=== PATIENT | female | born 1985 | race African-American/Black ===

== ENCOUNTER 2021-10-31 12:27 | Outpatient (CLI) | payer OTHER, SELFPAY ==
--- NOTE | ~2021-10-31 | XR_ITS ---
EXAMINATION: XR chest 2V Exam Date/Time: 10/31/2021 12:52 CDT HISTORY: SHARP LEFT SIDE CHEST PAIN Comparison: None available. RESULT: Lines, tubes, and devices: None. Lungs and pleura: Clear. Cardiomediastinal silhouette: Normal. Other: No acute osseous or upper abdominal finding. IMPRESSION: No acute cardiopulmonary process. Reviewed, dictated and finalized at location K.
--- NOTE | 2021-10-31 13:04 | ECG_ITS ---
Measurements Intervals [place] Rate: 58 P: 63 [place]: 164 QRS: 50 QRSD: 79 T: 28 QT: 424 QTc: 418 Interpretive Statements SINUS BRADYCARDIA WITH SINUS ARRHYTHMIA BORDERLINE ECG NO PREVIOUS ECG AVAILABLE FOR COMPARISON Electronically Signed On 10-31-2021 16:37:57 CDT by Ant Murray M.D.
== END 2021-10-31 12:28 | disposition home or self-care (01) ==
LOC: ANHIMG 12:35
PROVIDERS: PCP Physician Assistant; Visit Provider Physician Assistant
DX: R07.9 Chest pain, unspecified (principal); R94.31 Abnormal electrocardiogram [ECG] [EKG]
CPT/HCPCS: 71046; 93005

== ENCOUNTER 2022-08-30 14:38 | Outpatient (CLI) | payer OTHER, SELFPAY ==
--- NOTE | ~2022-08-30 | XR_ITS ---
EXAM: XR lumbar spine 2-3V DATE: 08/30/2022 15:07 HISTORY: CHRONIC LOW BACK PAIN . COMPARISON: X-ray chest 10/31/2021. FINDINGS: 5 nonrib-bearing lumbar-type vertebral bodies. Unfused S1 posterior arch. Transitional bridget paty, partial lumbarization of S1, rudimentary disc at S1-2. Pedicles intact. Normal vertebral body a lignment. Vertebral body heights preserved. Disc spaces maintained. Normal facets and posterior eleme nts. No fracture or dislocation. IMPRESSION: Transitional anatomy, partial lumbarization of S1, with a rudimentary disc at S1-2. Other huynh normal lumbar spine radiograph findings. Reviewed, dictated and finalized at location K. IMPRESSION: Transitional anatomy, partial lumbarization of S1, with a rudimenta ry disc at S1-2. Otherwise normal lumbar spine radiograph findings.
--- NOTE | ~2022-08-30 | XR_ITS ---
EXAM: XR knee RT min 4V, XR knee LT min 4V DATE: 08/30/2022 15:07 HISTORY: CHRONIC JOINT PAIN . COMPARISON: None available. FINDINGS: Normal mineralization. No fracture or dislocation. No lytic or blastic lesion. Mild bilate ral medial joint space narrowing. Mild tricompartmental osteophytosis. No erosion or periosteal levy e. Soft tissues within normal limits. IMPRESSION: Mild bilateral tricompartmental knee osteoarthritis. Reviewed, dictated and finalized at location K. IMPRESSION: Mild bilateral tricompartmental knee osteoarthritis.
== END 2022-08-30 14:39 | disposition home or self-care (01) ==
PROVIDERS: PCP Physician Assistant; Visit Provider Physician Assistant
DX: M17.0 Bilateral primary osteoarthritis of knee (principal); M54.50 Low back pain, unspecified
CPT/HCPCS: 72100; 73564

== ENCOUNTER 2022-09-25 13:30 | Outpatient (RCR) | payer OTHER, SELFPAY ==
--- NOTE | 2022-08-31 14:21 | OPREHPOC ---
Outpatient Therapy Plan of Care This is a Multidisciplinary Plan of Care that may contain components documented by all disciplines (PT, OT, and ST.) PT Problem 1 PT Problem #1 Knowledge Deficit PT Goal 1 Goal 1. patient will demonstrate independence with home exercise program PT Problem 2 PT Problem #2 Pain PT Goal 1 Goal 1. Patient will report back pain as 3/10 with activity 2. Patient will report bilateral knee pain as 3/10 with exercise 3. Patient will report reduction in bilateral leg radicular symptoms PT Problem 3 PT Problem #3 Impaired Functional Mobil PT Goal 1 Goal 1. Patient will report ability to return to exercising due reduction in symptoms PT Problem 4 PT Problem #4 Impaired Strength PT Goal 1 Goal 1. Patient will perform 20 bilateral prone hip extension 2. Patient will perform 20 reps sidelying hip abduction without reports of pain 3. Patient will demonstrate ability to perform squat with good technique due to reduction in pain and improvement in strength
--- NOTE | 2022-08-31 14:22 | PTOPEVAL1 ---
Assessment and note entered by Raquel Farrell, PT Evaluation Information Assessment Status Evaluation Diagnosis back and knee pain Onset back pain- onset Subjective Information Patient referred to PT due to back which has been present since 6 years ago. Pain can get up to 8/10 in mid and low back with radicular pain into bilateral legs Patient also reports knee pain for the past 3 to 4 years, reports knees feel like they are going to give out. Patient attempts to exercise however pain limits activity tolerance. Patient states pain is currently 8/10. 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 Patients goal is to reduce pain in back and knee pain in order to tolerate working and exercising. Reported Pain Level Pain Score 8,8: Self Report Assessment PT Clinical Summary Patient is 37 year old female presents with back and bilateral knee pain. All locations are currently rated as 8/10 and aggravated by standing /lifting/prolonged positioning. Patient demonstrates impairments in core/lower extremity strength, muscle length causing pain in back and knees with reports of radicular pain into bilateral lower extremities. Recommending skilled PT services 2x/wk for 4 weeks to improve strength, improve posture, improve muscle length in order to reduce back and knee pain and return to daily activities within community. Plan of Care Interventions Electrical Stimulation,Gait Training,Hot Pack/Cold Pack,Manual Therapy,Neuro Re-education,Patient/ Caregiver Education,Therapeutic Activities, Therapeutic Exercise,Ultrasound Other Interventions cupping, taping, iastm PT Services Indicated Yes Treatment Frequency and 2x/wk for 4 weeks Duration These treatments will address the objective and functional deficits as defined above. The patient will be advanced safely and appropriately in order for the patient to progress towards his/her prior level of function. Additional exercises will be introduced and as well as a comprehensive home exercise program upon discharge, if needed, ?to ensure carryover of functional gains achieved in the clinic. This treatment plan has been reviewed and agreement upon by the patient.
--- NOTE | 2022-09-13 13:19 | PCPTNOTE ---
Patient did not show up for scheduled appointment this date.
--- NOTE | 2022-09-15 15:01 | PCPTNOTE ---
Pt NS her appt today. Called pt and reminded them of her next appt day and time. Pt stated she forgot todays appt.
== END 2022-11-27 10:25 | disposition home or self-care (01) ==
LOC: ANHPT 13:30
PROVIDERS: PCP Physician Assistant; Visit Provider Physician Assistant
DX: G89.29 Other chronic pain (principal)
CPT/HCPCS: 97110; 97162; 97530; 99199

== ENCOUNTER 2023-05-01 17:00 | Emergency (ER) | payer OTHER, SELFPAY ==
[2023-05-01] VITALS (14 sets, daily range): BP systolic 148–156; BP diastolic 80–98; PULSE 57–72; RESP 13–19; TEMP 36.8–37.1; O2SAT 99–100
--- NOTE | ~2023-05-01 | XR_ITS ---
EXAMINATION: XR chest 2V DATE: 05/01/2023 17:25 INDICATION: Chest pain. TECHNIQUE: Frontal and lateral views of the chest were obtained. COMPARISON: Chest 2 views 10/31/2021 FINDINGS: There is no pneumonia, pleural effusion, or pneumothorax. The heart size is normal. IMPRESSION: 1. No acute cardiopulmonary disease. Reviewed, dictated and finalized at location E. NG FORMER HAND
--- NOTE | 2023-05-01 17:05 | ECG_ITS ---
Measurements Intervals [place] Rate: 65 P: 58 [place]: 162 QRS: 40 QRSD: 82 T: 32 QT: 400 QTc: 417 Interpretive Statements SINUS RHYTHM COMPARED TO ECG 10/31/2021 13:18:33 SINUS RHYTHM NOW PRESENT Electronically Signed On 05-02-2023 15:57:04 COLLEGE PHYSICS INSTRUCTOR by Lucas Maher M.D.
--- NOTE | 2023-05-01 17:09 | ED.CHESTPAIN ---
HPI - Chest Pain General Chief Complaint: Chest Pain <Amalia Palma PA-C - Last Filed: 05/02/23 13:24> Stated Complaint: chest pain <Amalia Palma PA-C - Last Filed: 05/02/23 13:24> Time Seen by Provider: 05/01/23 17:09 <Amalia Palma PA-C - Last Filed: 05/02/23 13:24> Focused HPI: This is a 38 year old female that presents to the ER for chest pain. Reports it has been ongoing for a while on and off. Reports over the last 2 days it has become more constant. The pain is sharp and achy. No known alleviating or exacerbating factors. Denies shortness of breath, vomiting or dizziness. GENERAL: Well-appearing, well-nourished, and in no acute distress. HEAD: Normocephalic, atraumatic. CHEST: Clear to auscultation. ?No respiratory distress. HEART: Regular rate and rhythm.? NEURO: ?Alert and oriented x3. Patient screened in triage and initial orders placed.? ?Additional care and disposition to be based upon?diagnostic testing and treatment. <Amalia Palma PA-C - Last Filed: 05/02/23 13:24> History of Present Illness HPI narrative: 38-year-old female presenting to the emergency department for evaluation of intermittent left-sided chest pain. Patient states she did have recent exposure to influenza and did develop some cough with it. <Chele Chowdhury MD - Last Filed: 05/05/23 10:03> Related Data Allergies/Adverse Reactions: Allergies Allergy/AdvReac Type Severity Reaction Status Date / Time No Known Allergies Allergy Verified 05/01/23 23:14 <Amalia Palma PA-C - Last Filed: 05/02/23 13:24> Review of Systems Review of Systems: CONSTITUTIONAL: Denies fever CARDIOVASCULAR: Reports chest pain RESPIRATORY: Denies dyspnea. <Amalia Palma PA-C - Last Filed: 05/02/23 13:24> All systems reviewed & are unremarkable except as noted in HPI and below <Amalia Palma PA-C - Last Filed: 05/02/23 13:24> PMFSH Past Medical History Medical History: Medical History (Updated 05/03/23 @ 00:00 by Lorraine Mccannalexia) History of gastroesophageal reflux (GERD) History of hypertension <Amalia Palma PA-C - Last Filed: 05/02/23 13:24> Social History Social History: Social History (Updated 05/01/23 @ 17:11 by Amalia Palma PA-C) Substance use: current Substance use type: marijuana <Amalia Palma PA-C - Last Filed: 05/02/23 13:24> Exam Narrative: GENERAL: Well-appearing, well-nourished, and in no acute distress. HEAD: Normocephalic, atraumatic. EYES: EOMI. CHEST: Clear to auscultation. No respiratory distress. No wheezes rales or rhonchi HEART: Regular rate and rhythm. No murmur heard. Normal peripheral pulses. EXTREMITIES: Normal range of motion. No edema. SKIN: Warm, dry, no rash. NEURO: No focal deficits. Alert and oriented x3. PSYCH: Normal mood and affect <Amalia Palma PA-C - Last Filed: 05/02/23 13:24> Course Course Emergency Course: 38-year-old female presenting to the ED for evaluation bilateral chest pain that is worsened with inspiration worsened with coughing. Patient is afebrile with no leukocytosis and a stable hemoglobin of 12.7. Patient's D-dimer with high end of normal but still within normal limits. Patient's CMP had no acute abnormalities and patient had negative serial troponins. Chest x-ray showed no acute cardiopulmonary abnormality. Patient had resolution of her symptoms with IV Toradol. With the recent viral infection I do suspect pleurisy rather than pulmonary embolism versus cardiac angina. Patient was updated on the results of workup patient was comfortable with plan for discharge and close follow-up <Chele Chowdhury MD - Last Filed: 05/05/23 10:03> Vital Signs Vital signs: Vital Signs Temperature 98.8 F 05/01/23 17:09 Pulse Rate 72 05/01/23 17:09 Respiratory Rate 16 05/01/23 17:09 Blood Pressure 153/80 H 05/01/23 17:09 Pulse Oximetry 100 05/01/23 17:09 Oxygen Delivery Room Air
[2023-05-01 17:52] LABS: Alanine Aminotransferase 17 U/L (6-35); Alkaline Phosphatase 55 U/L (38-126); Anion Gap 6 mmol/L (8-16); Aspartate Amino Transferase 22 U/L (14-36); Bilirubin,Total 0.4 mg/dL (0.2-1.3); Blood Urea Nitrogen 10 mg/dL (7-17); Calcium 8.9 mg/dL (8.4-10.2); Carbon Dioxide 25 mmol/L (22-30); Chloride 106 mmol/L (98-107); Estimated CRCL calculation 79 ml/min; Estimated Glomerular Filt Rate > 60; Glucose 101 mg/dL (65-110); Lipase 73 U/L (23-300); Potassium 3.9 mmol/L (3.4-5.0); Sodium 137 mmol/L (137-145)
[2023-05-01 18:02] LABS: Troponin I < 0.012 ng/mL (0.000-0.034)
--- NOTE | 2023-05-01 20:19 | ECG_ITS ---
Measurements Intervals [place] Rate: 60 P: 60 [place]: 167 QRS: 46 QRSD: 81 T: 32 QT: 403 QTc: 405 Interpretive Statements SINUS RHYTHM NORMAL ECG COMPARED TO ECG 05/01/2023 17:11:28 NO SIGNIFICANT CHANGES Electronically Signed On 05-02-2023 16:18:46 BOMB TECHNICIAN by Ant Murray M.D.
[2023-05-01 20:34] LABS: Basophils Percent Auto 0.5 % (0.2-1.2); Eosinophils Absolute Auto 0.3 K/mm3 (0-0.3); Eosinophils Percent Auto 3.8 % (0-4.4); Hematocrit 40.3 % (37.0-47.0); Hemoglobin 12.7 g/dL (12.0-15.0); Immature Granulocyte Absolute 0.02 K/mm3 (0.00-0.031); Immature Granulocyte Percent A 0.3 % (0-0.5); Lymphocytes Absolute Auto 3.61 K/mm3 (0.9-3.2); Lymphocytes Percent Auto 49.4 % (18.3-44.2); Mean Corpuscular HGB Conc 31.5 g/dl (32-36); Mean Corpuscular Hemoglobin 30.4 pg (26-34); Mean Corpuscular Volume 96.4 fl (80-100); Mean Platelet Volume 10.1 fl (7.4-10.4); Monocytes Absolute Auto 0.5 K/mm3 (0.1-0.6); Monocytes Percent Auto 6.8 % (2.6-8.5); Neutrophils Absolute Auto 2.9 K/mm3 (1.3-6.7); Neutrophils Percent Auto 39.2 % (45.5-73.1); Platelet Count Result 269 k/mm3 (150-375); Red Blood Count 4.18 M/mm3 (4.2-5.4); Red Cell Distribution Width 14.5 % (11.5-14.5); White Blood Count 7.3 K/mm3 (4.5-10.0)
[2023-05-01 20:58] LABS: Troponin I 0.015 ng/mL (0.000-0.034)
[2023-05-01 22:51] LABS: Partial Thromboplastin Time 27.1 SECONDS (22.3-36.8)
[2023-05-01 22:52] LABS: Prothrombin Time 13.2 Seconds (11.1-14.7)
[2023-05-01 23:01] LABS: D Dimer 0.47 ug/mL (<0.48)
--- NOTE | 2023-05-01 23:48 | ECG_ITS ---
Measurements Intervals [place] Rate: 57 P: 49 [place]: 170 QRS: 38 QRSD: 84 T: 19 QT: 422 QTc: 411 Interpretive Statements SINUS BRADYCARDIA WITH SINUS ARRHYTHMIA NORMAL ECG COMPARED TO ECG 05/01/2023 20:31:31 SINUS BRADYCARDIA NOW PRESENT SINUS ARRHYTHMIA NOW PRESENT Electronically Signed On 05-02-2023 16:21:26 OFFICE MANAGER by Ant Murray M.D.
[2023-05-02 00:06] LABS: Troponin I < 0.012 ng/mL (0.000-0.034)
--- NOTE | 2023-05-02 00:10 | ED.CHESTPAIN ---
HPI - Chest Pain General Chief Complaint: Chest Pain Stated Complaint: chest pain Time Seen by Provider: 05/01/23 17:09 History of Present Illness HPI narrative: 38-year-old female present to the emergency department for evaluation of intermittent chest pain. Patient states the chest pain is bilateral and worsened with cough and inspiration. Patient states that was less frequently few days ago but more frequent today. Patient states that she does have cough and congestion secondary to suspected influenza. Patient reports her daughter had influenza and she developed subsequent cough and congestion. Patient denies any prior history of coronary artery disease or MS. Patient denies any prior history PE or DVT. Related Data Allergies Allergy/AdvReac Type Severity Reaction Status Date / Time No Known Allergies Allergy Verified 05/01/23 23:14 Review of Systems Review of Systems: All systems reviewed & are unremarkable except as noted in HPI and below PMFSH Past Medical History Medical History (Updated 05/03/23 @ 00:00 by Lorraine Strong) History of gastroesophageal reflux (GERD) History of hypertension Social History Social History (Updated 05/01/23 @ 17:11 by Amalia Palma PA-C) Substance use: current Substance use type: marijuana Exam Narrative: APPEARANCE: Well appearing, no pain, no distress, well-nourished. HEAD: normocephalic, atraumatic. EYES: PERRLA/EOMI, conjunctivae clear. NOSE: Normal no drainage EARS:TMS clear with good light reflex. THROAT: Pharynx clear, no exudate. NECK: Supple. No adenopathy, no masses. RESPIRATORY: Airway patent, respirations nonlabored. Clear to auscultation bilaterally, no rales, rhonchi, wheezing. CARDIOVASCULAR: Regular rate and rhythm without murmurs rubs or gallops. ABDOMINAL: Soft, nontender, nondistended, normal bowel sounds MUSCULOSKELETAL: Moves all extremities. Strength/ROM intact, No edema, No calf tenderness. NEURO: Alert. Cranial nerves II through XII intact. Grossly intact SKIN: Warm, dry. Normal Color Course Vital Signs Vital signs: Vital Signs Temperature 98.8 F 05/01/23 17:09 Pulse Rate 72 05/01/23 17:09 Respiratory Rate 16 05/01/23 17:09 Blood Pressure 153/80 H 05/01/23 17:09 Pulse Oximetry 100 05/01/23 17:09 Oxygen Delivery Room Air 05/01/23 17:09 Temperature 98.3 F 05/01/23 20:33 Pulse Rate 69 05/02/23 02:45 Respiratory Rate 17 05/02/23 02:45 Blood Pressure 156/98 H 05/01/23 23:31 Pulse Oximetry 100 05/01/23 23:47 Oxygen Delivery Room Air 05/01/23 23:08 MDM - Chest Pain Lab Data 05/01/23 20:28 05/01/23 17:22 Labs: Lab Results 05/01/23 05/01/23 05/01/23 Range/Units 17:22 20:28 22:34 WBC 7.3 (4.5-10.0) K/mm3 RBC 4.18 L (4.2-5.4) M/mm3 Hgb 12.7 (12.0-15.0) g/dL Hct 40.3 (37.0-47.0) % MCV 96.4 (80-100) fl MCH 30.4 (26-34) pg MCHC 31.5 L (32-36) g/dl RDW 14.5 (11.5-14.5) % Plt Count 269 (150-375) k/mm3 MPV 10.1 (7.4-10.4) fl Immature Gran % (Auto) 0.3 (0-0.5) % Neut % (Auto) 39.2 L (45.5-73.1) % Lymph % (Auto) 49.4 H (18.3-44.2) % [place] % (Auto) 6.8 (2.6-8.5) % Eos % (Auto) 3.8 (0-4.4) % Baso % (Auto) 0.5 (0.2-1.2) % Lymph # (Auto) 3.61 H (0.9-3.2) K/mm3 [place] # (Auto) 0.5 (0.1-0.6) K/mm3 Eos # (Auto) 0.3 (0-0.3) K/mm3 Baso # (Auto) 0.0 (0.0-0.1) K/mm3 Abs Immat Gran (auto) 0.02 (0.00-0.031) K/mm3 Absolute Neuts (auto) 2.9 (1.3-6.7) K/mm3 Absolute Nucleated RBC 0.0 (0.0-0.012) K/mm3 Nucleated RBC % 0.0 (0.0-0.2) % PT 13.2 (11.1-14.7) Seconds INR 1.0 APTT 27.1 (22.3-36.8) SECONDS D-Dimer 0.47 (<0.48) ug/mL Sodium 137 (137-145) mmol/L Potassium 3.9 (3.4-5.0) mmol/L Chloride 106 (98-107) mmol/L Carbon Dioxide 25 (22-30) mmol/L Anion Gap 6 L (8-16) mmol/L BUN 10 (7-17) mg/dL Creatinin
[2023-05-02] MEDS: KETOROLAC 30 MG/ML VIAL (*BKC) IM (00:51)
[2023-05-02 02:00] VITALS: PULSE 73; RESP 16
[2023-05-02 02:15] VITALS: PULSE 65; RESP 14
[2023-05-02 02:41] VITALS: PULSE 61; RESP 13
[2023-05-02 02:45] VITALS: PULSE 69; RESP 17
== END 2023-05-02 03:05 | disposition home or self-care (01) ==
PROVIDERS: Family Medicine; Physician Assistant; Emergency Provider Emergency Medicine; PCP Physician Assistant
DX: R09.1 Pleurisy (principal); R07.9 Chest pain, unspecified; I10 Essential (primary) hypertension
CPT/HCPCS: 36415; 71046; 80053; 83690; 84484; 85025; 85380; 85610; 85730; 93005; 96372; 99284; J1885

== ENCOUNTER 2025-03-02 18:30 | Emergency (ER) | payer OTHER, SELFPAY ==
--- OUTSIDE RECORDS SUMMARY | 2025-03-02 18:33 | XMS_ITS | Continuity of Care Document ---
Author Organization [facility] Jadwin Address [address] [place] [address] Assessment Encounter Date Assessment Date Assessment LastModified by Organization Details LastModified Time 02/16/2025 02/16/2025 Annual gynecological exam performed. Patient will come back in a year unless there are new symptoms. [email or web address] Not available 02/16/2025 15:25:43 Plan of Treatment Reminders Order Date Submit Date Provider Last Modified By Organization Details Last Modified Time Details Appointments MED CHECK 2025 10:00A YOSELIN Harrgove Not available Not available Not available Lab hbcab (hepatiti s B core Ab) igm, serum 2024 025 [facility] (Lab), [address] [facility], [place], [address], 02/17/2025 19:24:35 HBsAg (hepatiti s B surface Ag), serum 2024 025 [facility] (Lab), [address] [place], [address], 02/17/2025 19:24:34 hepatitis C virus Ab, serum 2024 025 [facility] (Lab), [address], [place], [address], 02/17/2025 19:24:34 HIV 1+2 AB + HIV 1 p24 Ag, qualitati ve immunoass ay, serum 2024 025 [facility] (Lab), [address], [place], [address], 02/17/2025 19:24:33 RPR (rapid plasma reagin), serum 2024 025 [facility] (Lab), [address] [facility], [place], [address], 02/17/2025 19:24:34 Referral None recorded. Procedures None recorded. Surgeries None recorded. Imaging None recorded. Medication Orders Slynd 4 mg (28) tablet 2024 025 [id number], [address], [place], [place], [id number], 02/16/2025 16:09:03 Patient TargetsNo targets recorded. Patient InstructionsNo instructions recorded. Reason for Referral None Reported. Results Created Date Observation Date Name Description Value Unit Range Abnormal Flag Note LastModifiedBy Organization Detail LastModifiedTime 02/17/2002/16/2025 HIV 1/2 ANTIG EN/AN TIBOD Y, REFLE X CONFI RMATI ON HIV antigen/anti body Nonrea ctive nonrea ctive HIV-1 antig en and HIV-1 /HIV- 2 antib odies were not detec pratima. No labor atory evide nce of HIV infec tion. Not Available [facility] (Lab) [address], [place], [address], 02/17/2025 19:24:33 02/17/2002/16/2025 HEPAT ITIS B SURFA CE ANTIG EN hepatitis B surface antigen Non-re active non-re active The test metho d is elect dane milum inesc ence immun oassa y perfo rmed on the Dane Shannan e801. Value s obtai brett with diffe rent assay metho ds by other labor atori es canno t be used inter levy eably . Not Available [facility] (Lab) [address], [place], [address], 02/17/2025 19:24:34 02/17/20 25 02/16/2025 HEPAT ITIS C ANTIB ERIKA SCREE N, REFLE X TO CONFI RMATI ON hepatitis C antibody Non-re active non-re active Antib odies to HCV Not Detec pratima, does not exclu de the possi bilit y of expos ure to HCV. The test metho d is elect dane milum inesc ence immun oassa y perfo rmed on the Dane Shannan e801. Value s obtai brett with diffe rent assay metho ds by other labor atori es canno t be used inter levy eably . Not Available [facility] (Lab) [address] [facility], [place], [address], 02/17/2025 19:24:34 02/17/20 25 02/16/2025 RPR SCREE N, REFLE X TITER /CONF IRMAT ION RPR qualitative Nonrea ctive nonrea ctive Not Available [facility] (Lab) [address] [facility], [place], [address], 02/17/2025 19:24:34 02/17/20 25 02/16/2025 HEPAT ITIS B CORE, IGM hepatitis B core IgM antibody Non-re active non-re active Antib odies to Hepat itis B Core IgM not detec pratima. Does not exclu de the possi bilit y of expos ure to or infec tion with HBV. Corre late with other Hepat itis B serol ogies . Not Available [facility] (Lab) [address] [facility], [place], [address], 02/17/2025 19:24:35 02/17/20 25 02/16/2025 IMAGE GUIDE D PAP AND HPV REGAR DLESS image guided Pap, HPV regardless of Pap result SEE RESULT S BELOW CASE REPOR T: Cytol ogy Gynec ologi gunjan Repor t Case: [id number] Autho ribrooken g Provi darell: Corinne Duran, LANE Colle cted: 02/16 1623 Order ing Locat ion: [place] [facility] Recei suly: 02/17 0930 First Scree n: Dilcia mendoza, Angélica bella, CT Speci men: Carmen celestin Pap - Image d, Cervi x STATE MENT OF ADEQU ACY: Satis facto ry for evalu ation Trans forma tion zone compo nent absen t ----- ----- ----- ----- ----- ----- ----- ----- ----- ----- ----- ----- ----- ----- ----- ----- ----- ---- FINAL DIAGN OSIS: Negat lisbet for Intra epith elial Sherie mcbride or Tish martell ([facility]) . Shift in bailey sugge stive of bacte rial vagin osis. Elect marielena durbin by Angélica Knight ed, CT on 02/19 at 2309 SUPERVISING CHEF ----- ----- ----- ----- ----- ----- ----- ----- ----- ----- ----- ----- ----- ----- ----- ----- ----- ---- HPV RESUL TS: HPV mRNA E6/E7 : No HPV mRNA Detec pratima NOTE: This high risk HPV mRNA assay detec ts fourt een high- risk HPV types (16, 18, 31, 33, 35, 39, 45, 51, 52, 56, 58, 59, 66, 68) witho ut diffe renti ation . COMME NT: Slide scree brett manua lly due to rejec tion by the Thinp rep Imagi ng Syste m. CLINI GUNJAN INFOR MATIO N: Menst rual Statu s: LMP (if appli cable ): Clini gunjan Histo ry/Pr eviou s Pap: Type of Neopl josie (if appli cable ): Signi ficisabela t Clini gunjan Findi ngs: Other Histo ry: Hormo te (if appli cable ): PAP EDUCA FITO L NOTE: The Pap Test is a scree fawad test with an inher ent false negat lisbet rate. Liqui d-bas ed sampl ing may decre ase, but will not elimi madelin, false negat lisbet resul ts. A negat lisbet resul t does not precl ude the prese nce and/o r devel opmen t of disea se, since the prese nce of abnor mal cells in the sampl e depen ds on the locat ion of the lesio n and sampl ing techn ique. Charlie nued regul ar scree fawad is the best metho d of cance r preve ntion . If repor pratima cytol ogic findi ng do not corre late with physi gunjan and/o r histo rical findi ngs, furth er inves tigat ion is recom ethan d, as clini praveen monae nted. Not Available [facility] (Lab) [address] [facility], [place], [address], 02/20/2025 00:13:38 Result Notes None recorded. Procedures Surgical History Date Name Laterality Status Provider Name and Address Organization Details Recorded Time 6 section completed [facility] 02/16/2025 15:46:52 Imaging Results None recorded. Procedure Notes None recorded. Medical Equipment None Reported. Allergies Allergen ID Allergen Name Allergen Category Reaction Reaction Severity Criticality Documentation Date Start Date Code Code System Note Provider Name and Address Organization Details Recorded Time 29135 penicilli n V Not available Not available Not available Not available 02/16/20252018 7984 RxNorm unrec ogniz ed react ion (text : Unkno wn, code: 51927 5006) (from [facility] sour e) Not Available [employer] - External Data Service - prod 5 03:04:59 39233 penicilli n G Not available Not available Not available Not available 02/16/20252018 7980 RxNorm unrec ogniz ed react ion (text : Unkno wn, code: 27090 5006) [facility]) Not Available [employer] Data Service - prod 03:04:59 16996 Product containin g penicilli n (product) medicatio n Not available Not available Not available 02/16/2025 27177 8001 SNOMED Not Available [employer] - External Data Service - prod 03:05:23 Medications Name Sig Start Date Stop Date Status Note LastModified by Organization Details LastModified Time cetirizine 10 mg tablet TAKE 1 TABLET BY MOUTH EVERY DAY active Not Available Not Available No t Available omeprazole 40 mg capsule,del ayed release TAKE 1 CAPSULE (40 MG TOTAL) BY MOUTH DAILY. active Not Available Not Available No t Available amlodipine 10 mg tablet TAKE 1 TABLET BY MOUTH EVERY DAY active Not Available Not Available No t Available albuterol sulfate HFA 90 mcg/actuati on aerosol inhaler INHALE 2 PUFFS BY MOUTH EVERY 4 HOURS NEEDED active Not Available Not Available No t Available albuterol 02/16 completed Not Available Not Available Not Available Symbicort 80 mcg-4.5 mcg/actuati on HFA aerosol inhaler INHALE 2 PUFFS TWICE A DAY active Not Available Not Available No t Available cholecalcif everton (vitamin D3) 125 mcg (5,000 unit) tablet TAKE 1 TABLET BY MOUTH EVERY DAY active Not Available Not Available No t Available Slynd 4 mg (28) tablet Take 1 tablet every day by oral route. 2024 active Not Available Not Available Not Avai lable EluRyng 0.12 mg-0.015 mg/24 hr vaginal ring INSERT 1 RING VAGINALLY X3 WEEKS THEN REMOVE FOR 1 WEEK 02/16 completed Not Available Not Available Not Available Airsupra 90 mcg-80 mcg/actuati on HFA aerosol inhaler TAKE 2 PUFFS BY MOUTH EVERY 4 HOURS NEEDED active Not Available Not Available No t Available Airsupra 02/16 completed Not Available Not Available Not Available Vitals Date Recorded Body height Body mass index (BMI) Body weight Systolic And Diastolic Provider Name and Address Organization Details Last Updated DateTime 02/16/2025 160.02 cm 37.7 kg/m2 48831.17 g 145/83 mm[Hg] Raquel De La Fuente [facility] 02/16/2025 15:36:08 Social History Question Answer Notes LastModified by Organizat ion Details LastModified Time Tobacco Smoking Status Never Smoker Raquel De La Fuente [facility], [facility] 02/16/2025 15:46:10 Do You Have An Advance Directive? No [email or web address] Information n ot available 02/16/2025 Are You Blind Or Do You Have Difficulty Seeing? No Information n ot available 02/16/2025 What Is Your Level Of Caffeine Consumption? None [email or web address] Information not available 02/16/2025 How Much Tobacco Do You Chew? None Information not available 02/16/2025 In The 14 Days Before Symptom Onset, Have You Had Close Contact With A Laboratory-confirm ed COVID-19 While That Case Was Ill? No [email or web address] Information n ot available 02/16/2025 In The 14 Days Before Symptom Onset, Have You Had Close Contact With A Person Who Is Under Investigation For COVID-19 While That Person Was Ill? No Information not available 02/16/2025 Have You Been To An Area Known To Be High Risk For COVID-19? No [email or web address] Information not available 02/16/2025 Are You Deaf Or Do You Have Serious Difficulty Hearing? No [email or web address] Information not available 02/16/2025 What Type Of Diet Are You Following? REGULAR [email or web address] Information n ot available 02/16/2025 Which Illicit Or Recreational Drugs Have You Used? Marijuana [email or web address] Information not available 02/16/2025 What Is The Highest Grade Or Level Of School You Have Completed Or The Highest Degree You Have Received? [id number] [email or web address] Information not available 02/16/2025 Are There Any Guns Present In Your Home? No [email or web address] Information not available 02/16/2025 Do You Use Protection During Sex? No [email or web address] Information not available 02/16/2025 Do You Use Your Seat Belt Or Car Seat Routinely? Yes Information not available 02/16/2025 Do You Have Smoke And Carbon Monoxide Detectors In Your Home? Yes Information not available 02/16/2025 How Much Tobacco Do You Smoke? No [email or web address] Information not available 02/16/2025 Do You Use Sunscreen Routinely? No Information not available 02/16/2025 Have You Used IV Drugs? No [email or web address] Information not available 02/16/2025 Sex: Unknown Functional Status Question Answer Note LastModified by Organizat ion Details LastModified Time Do you use any illicit or recreational drugs? Yes [email or web address] Information not available 02/16/2025 What is your level of alcohol consumption? Occasional [email or web address] Information not available 02/16/2025 Are you able to walk independently without assistance or assistive devices? 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 Occasional Information not available 02/16/2025 Mental Status Question Answer Note LastModified by Organization D etails LastModified Time Do you feel stressed (tense, restless, nervous, or anxious, or unable to sleep at night)? [id number] Information not available 02/16/2025 Family History Relationship Description Onset Age of this Age Resolved Age Notes LastModified by Organization Details LastModified Time Unspecified Relation Family history unknown Not available 2024 15:36:25 Medical History Condition Response Hypertension Y Asthma Y Gynecological History Statement/Question Response Abnormal Pap Y Date of Last Mammogram Date of LMP 02/12/2025 Was last menstrual period normal Y STIs/STDs Y Current Control Method Vaginal Rin g Are cycles usually normal Y Date of Last Colonoscopy Sexually Active? Y Menses Monthly Y Date of DEXA bone scan Date of Last Pap Smear Sexual Problems? N Desired Control Method Vaginal Rin g LMP Approximate Obstetrics History GPAL:G 2 P 1 0 1 1 Type Value Full Term 1 Spontaneous 1 Living 1 Total 2 Past Encounters Encounter ID Performer Location Encounter Start Date Encounter Closed Date Diagnosis/Indication Diagnosis SNOMED-CT Code Diagnosis ICD10 Code Diagnosis IMO Codes Diagnosis Note [id number] YOSELIN Pittman [place] [address] [address] 02/16/2025 15:16:15 02/17/2025 09:52:12 Gynecologic examination 15199995 Z01.000 [id number] WWEPap - done todaySTI screen - ordered per pt requestRou july labs - PCPRTC in 1 yr or sooner if needed It is strongly advised to have an annual flu shot and up can obtain at most pharmacies . If you have not had a TDap shot in the last 10 years you should obtain one as well. Discussed with patient & provided with informatio n regarding the HPV vaccine if applicable . Encourage safe sexual practices, to use condoms and limit partners if not already in a monogamous relationsh ip. Do monthly self breast exams. BRCA testing is now available for patients with strong genetic history of female cancer. If interested contact the office. Engage in regular exercise. Avoid tobacco and illicit drugs. This lifestyle behavior pattern will lead to less health conditions and longer life span. If BMI greater than 25 dietary consult advised. Questions answered. Contracept ion care management 183374236 Z30.9 [id number] Discussed with patient risks, benefits, and alternativ es of contracept ion. Discussed all options, including natural family planning, condoms, combined oral contracept jayro, contracept lisbet patch, Nuva-ring, Depo-Prove ra, Nexplanon, intrauteri ne device, and sterilizat ion (tubal ligation, vasectomy) . Advised that of the above listed options, only condoms can prevent sexually transmitte d infections and that condoms can be used together with any form of contracept ion. Patient has contraindi cations to combined hormonal contracept ion, including: uncontroll ed hypertensi on. After extensive counseling , patient at this time desires slynd (POP).Samp les given, rx sent to pt pharmacyRT Claude for med check in 3-4 months Venereal d isease screening 288592121 Z11.3 22224 Sexually t ransmitted infectious disease 0070629 A64 Health Concerns Section Related Observation LastModified by Organization Detai ls LastModified Time None Recorded Concern Status LastModified by Organization Details LastModified Time None Recorded Payers Encounter Date Sequence Insurance Name Policy Number Policy Seth Covered Member ID Seth Member ID Guarantor Name 02/16/2025 1 [facility] (MEDICAID REPLACEMENT - HMO) Yelena Serrano [id number] Yelena Serrano Notes Date Note Type Note Provider Name and Address Organization Details Recorded Time 5 text/html Annual GYNReported by PatientGenitourinary symptomsFor menstrual cycle, patient reportsnormal menses. For urinary symptoms, patient reportsno hematuriaandno incontinence. For vulva, patient reportsno genital lesion. For vagina, patient reportsnormal vaginal discharge.Breast symptomsFor breast, patient reportsno breast pain,no breast lump, andno nipple discharge.ContraceptionFo r current contraception, patient reportssatisfied with current contraceptionandnuvaring. Endocrine symptomsFor sexual complaints, patient reportsno sexual complaints,no pain during intercourse, andnormal libido. For menopausal symptoms, patient reportsno menopausal symptomsandnormal vaginal lubrication.Psychological symptomsFor psychological symptoms, patient reportsno depression,no anxiety, andno pmdd.Preventative measuresFor preventive measures, patient reportsencourage self breast examination,encourage regular exercise, andencourage no tobacco use.39yo wweBC - NuvaRinglast pap 2022 wnldiagnosed with HTN over the past yr and started on amlodipine (managed by PCP). YOSELIN Pittman [address], [place], [address], [facility] 02/17/2025 08:54:14 OBGyn Episode No OBEpisode recorded.
--- OUTSIDE RECORDS SUMMARY | 2025-03-02 18:33 | XMS_ITS | Encounter Summary ---
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[facility] [employer]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[facility] Gender Identity Not on file Sexual Orientation Not on file documented as of this encounter Plan of Treatment Not on file documented as of this encounter Procedures Procedure Name Priority Date/Time Associated Diagnosis Comments OBSTETRIC/GYNECOLOGY ULTRASONOGRAPHY REPORT 10/17/2016 10:38 AM CDT documented in this encounter Results * OBSTETRIC/GYNECOLOGY ULTRASONOGRAPHY REPORT (10/17/2016 10:38 AM CDT) Anatomical Region Laterality Modality Ultrasound us Provider Scanning IMG OB US PROCEDURES Final Res ult documented in this encounter Visit Diagnoses Not on filedocumented in this encounter Care Teams Third Shift Lieutenant Relationship Specialty Start Date End Date No, Physician PCP - General 02/24/21 documented as of this encounter
--- OUTSIDE RECORDS SUMMARY | 2025-03-02 18:33 | XMS_ITS | Data Portability ---
[facility] [address] [facility] [place] [address] Care Team Providers Care Lifestyle Director Name Role Phone RABIA ROGERS Primary Care Provider [phone] Assessment Encounter Date Assessment Date Assessment LastModified by Organization Details LastModified Time 01/24/2024 01/24/2024 pap smear done [facility]/2022 on her [facility] chart, NILM , -HPV Not available 01/25/2024 11:04:34 Plan of Treatment Reminders Order Date Submit Date Provider Last Modified By Organization Details Last Modified Time Details Appointments None recorded. Lab CMP, serum or plasma 2023 024 [facility], [address] [place] [address], [address], [place], [address], 4 00:07:55 CBC w/ auto diff 2023 024 [facility], [address] [place] [address], [address], [place], [address], 4 00:07:57 lipid panel, serum 2023 024 [facility], [address] [place] [address], [address], [place], [address], 4 00:07:54 HbA1c (hemoglobi n A1c), blood 2023 024 YENNI SEXTON, [address], [address], [place], [address], 4 08:30:55 TSH + free T4, serum 2023 024 [facility], [address], [address], [place], [address], 4 08:30:54 vitamin D, 25-hydroxy , total, serum 2023 024 YENNI RIOSRP, [address], [address], [place], [address], 4 08:30:56 CMP, serum or plasma 2022 023 YENNI SEXTON, [address], [address], [place], [address], 3 17:10:19 CBC w/ auto diff 2022 023 YENNI SEXTON, [address], [address], [place], [address], 3 17:10:20 HbA1c (hemoglobi n A1c), blood 2022 023 YENNI SEXTON, [address], [address], [place], [address], 3 17:10:20 lipid panel, serum 2022 023 YENNI SEXTON, [address], [address], [place], [address], 3 17:10:18 Referral pulmonolog ist referral 2024 025 [email or web address] [facility], [address] [place] [address], [address], [place], [address], 5 12:08:22 orthopedic surgeon referral 2022 023 harlan Jay MD, [address] [place], [address], 3 14:36:31 gastroente rologist referral 2022 023 YENNI Blevins MD, [address], [address], [place], [address], 3 00:29:48 orthopedic surgeon referral 2022 023 harlan Jay MD, [address] [place], [address], 3 16:56:42 physical therapist referral 2022 023 [facility] (Outpatient Physical Therapy), [address], [place], [address], 3 16:04:17 Procedures None recorded. Surgeries None recorded. Imaging XR, chest, 2 view [address] (Imaging), [address] [facility] [address], [address], 5 08:01:32 MRI, lumbar spine, w/o contrast 2022 023 [facility] (Imaging), [address] [facility] [address], [place], [address], 3 11:45:32 XR, lumbar spine, 2 view 2022 023 [facility] (Imaging), [address] [facility] [address], [address], 3 17:11:18 XR, knee, 3 view 2022 023 [facility] ([facility]), [address], [place], [address], 3 16:37:57 Medication Orders amlodipine [address] [id number], [address], [place], [address], 5 12:04:38 cetirizine [address] [id number], [address], [place], [address], 5 12:03:43 Symbicort 80 mcg-4.5 mcg/actuat ion HFA aerosol inhaler [address] [id number], [address], [place], [address], 5 12:07:17 amlodipine 10 mg tablet 2022 [address] [facility] [address]/Pharmacy #[id number], [address], [place], [address], 3 11:17:33 Symbicort 80 mcg-4.5 mcg/actuat ion HFA aerosol inhaler [address]/Pharmacy #[id number], [address], [place], [address], 3 12:44:47 amlodipine 5 mg tablet 2022 023 [facility] [address]/Pharmacy #[id number], [address], [place], [address], 4 11:48:04 ProAir HFA 90 mcg/actuat ion aerosol inhaler [address] [id number], [address], [place], [address], 3 12:28:09 omeprazole 20 mg capsule,de layed release 2022 023 [id number], [address], [place], [address], 4 11:47:43 cetirizine 10 mg tablet [address] [id number], [address], [place], [address], 3 12:21:54 fluticason e propionate 50 mcg/actuat ion nasal spray,susp ension [address] [id number], [address], [place], [address], 12:21:54 Patient TargetsNo targets recorded. Patient Instructions Encounter Date Encounter Id Patient Instructions Last Modified By Organization Details Last Modified Time 08/22/2022 [id number] learning about asthma Not available 08/22/2022 12:28:05 controlling your asthma: care instructions Not available 08/22/2022 12:28:06 rhythm strip, EKG* ATHENAFAX Not available 08/22/2022 12:45:24 back pain: care instructions Not available 08/22/2022 12:28:05 knee pain or injury: care instructions Not available 08/22/2022 14:17:57 Well Visit, Ages 18 to 65: Care Instructions Not available 08/22/2022 12:28:06 wellness education Not available 08/22/2022 12:28:06 10/05/2022 [id number] learning about asthma Not available 10/05/2022 12:44:47 controlling your asthma: care instructions Not available 10/05/2022 12:44:47 knee pain or injury: care instructions Not available 10/05/2022 12:44:47 11/15/2022 [id number] A healthy lifestyle: care instructions Not available 11/15/2022 11:19:03 learning about asthma Not available 11/15/2022 11:17:33 controlling your asthma: care instructions Not available 11/15/2022 11:17:33 knee pain or injury: care instructions Not available 11/15/2022 11:17:33 01/24/2024 [id number] A healthy lifestyle: care instructions Not available 01/24/2024 11:51:31 Well Visit, Ages 18 to 65: Care Instructions Not available 01/25/2024 11:04:24 06/03/2024 [id number] A healthy lifestyle: care instructions Not available 06/03/2024 11:59:03 asthma in adults : care instructions Not available 06/04/2024 11:11:57 Reason for Referral Physical Therapist Referral for Chronic back pain Referring Physician: General Krishan Baker, Encounter Date: 08/22/2022 Health Information Managers Referral for Gastroesophageal reflux disease Referring Physician: General Krishan Baker, Encounter Date: 10/05/2022 Orthopedic Surgeon Referral for Pain of bilateral knee joints Referring Physician: General Krishan Baker, Encounter Date: 10/05/2022 Orthopedic Surgeon Referral for Pain of bilateral knee joints Referring Physician: General Krishan Baker, Encounter Date: 11/15/2022 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 Referral for M oderate persistent asthma Referring Physician: General Krishan Baker, Encounter Date: 06/03/2024 Results Created Date Observation Date Name Description Value Unit Range Abnormal Flag Note LastModifiedBy Organization Detail LastModifiedTime 08/23/19 23 08/23/2022 LIPID PANEL cholesterol, total 157 mg/dL 100-19 9 Not Available [facility] ([facility]) [address] [facility], [place], [address], 08/23/2022 17:10:18 08/23/19 23 08/23/2022 LIPID PANEL triglyceride s 75 mg/dL 0-149 Not Available [facility] ([facility]) [address] [place], [address], 08/23/2022 17:10:18 08/23/19 23 08/23/2022 LIPID PANEL HDL cholesterol 97 mg/dL >39 Not Available [facility]) [address] [place], [address], 08/23/2022 17:10:18 08/23/19 23 08/23/2022 LIPID PANEL VLDL cholesterol gunjan 14 mg/dL 5-40 Not Available [facility] ([facility]) [address] [place], [address], 08/23/2022 17:10:18 08/23/19 23 08/23/2022 LIPID PANEL LDL chol calc ([facility]) 46 mg/dL 0-99 Not Available [facility] ([facility]) [address] [place], [address], 08/23/2022 17:10:18 08/23/19 23 08/23/2022 COMP. METAB OLIC PANEL (14) glucose 81 mg/dL 70-99 Not Available [facility] ([facility]) [address] [place], [address], 08/23/2022 17:10:19 08/23/19 23 08/23/2022 COMP. METAB OLIC PANEL (14) BUN 10 mg/dL 6-20 Not Available [facility] ([facility]) [address] [place], [address], 08/23/2022 17:10:19 08/23/19 23 08/23/2022 COMP. METAB OLIC PANEL (14) creatinine 0.87 mg/dL 0.57-1 .00 Not Available [facility] ([facility]) [address], [place], [address], 08/23/2022 17:10:19 08/23/19 23 08/23/2022 COMP. METAB OLIC PANEL (14) eGFR 89 mL/mi n/1.7 3 >59 Not Available [facility] ([facility]) [address], [place], [address], 08/23/2022 17:10:19 08/23/19 23 08/23/2022 COMP. METAB OLIC PANEL (14) BUN/creatini ne ratio 11 9-23 Not Available [facility] ([facility]) [address] [facility], [place], [address], 08/23/2022 17:10:19 08/23/19 23 08/23/2022 COMP. METAB OLIC PANEL (14) sodium 138 mmol/ L 134-14 4 Not Available [facility] ([facility]) [address] [facility], [place], [address], 08/23/2022 17:10:19 08/23/19 23 08/23/2022 COMP. METAB OLIC PANEL (14) potassium 4.3 mmol/ L 3.5-5. 2 Not Available [facility] ([facility]) [address] [facility], [place], [address], 08/23/2022 17:10:19 08/23/19 23 08/23/2022 COMP. METAB OLIC PANEL (14) chloride 105 mmol/ L 96-106 Not Available [facility] ([place] [facility]) [address] [facility], [place], [address], 08/23/2022 17:10:19 08/23/19 23 08/23/2022 COMP. METAB OLIC PANEL (14) carbon dioxide, total 17 mmol/ L 20-29 below low normal Not Available [facility] ([place] [facility]) [address] [facility], [place], [address], 08/23/2022 17:10:19 08/23/19 23 08/23/2022 COMP. METAB OLIC PANEL (14) calcium 8.8 mg/dL 8.7-10 .2 Not Available [facility] ([place] [facility]) [address] [facility], [place], [address], 08/23/2022 17:10:19 08/23/19 23 08/23/2022 COMP. METAB OLIC PANEL (14) protein, total 6.8 g/dL 6.0-8. 5 Not Available [facility] ([facility]) [address] [facility], [place], [address], 08/23/2022 17:10:19 08/23/19 23 08/23/2022 COMP. METAB OLIC PANEL (14) albumin 4.0 g/dL 3.8-4. 8 Not Available [facility] ([facility]) [address] [facility], [place], [address], 08/23/2022 17:10:19 08/23/19 23 08/23/2022 COMP. METAB OLIC PANEL (14) globulin, total 2.8 g/dL 1.5-4. 5 Not Available [facility] ([place] [facility]) [address] [facility], [place], [address], 08/23/2022 17:10:19 08/23/19 23 08/23/2022 COMP. METAB OLIC PANEL (14) A/G ratio 1.4 1.2-2. 2 Not Available [facility] ([facility]) [address] [facility], [place], [address], 08/23/2022 17:10:19 08/23/19 23 08/23/2022 COMP. METAB OLIC PANEL (14) bilirubin, total <0.2 mg/dL 0.0-1. 2 Not Available [facility] ([place] [facility]) [address] [facility], [place], [address], 08/23/2022 17:10:19 08/23/1908/23/2022 COMP. METAB OLIC PANEL (14) alkaline phosphatase 47 IU/L 44-121 Not Available [facility] ([facility]) [address] [place], [address], 08/23/2022 17:10:19 08/23/19 23 08/23/2022 COMP. METAB OLIC PANEL (14) AST (SGOT) 25 IU/L 0-40 Not Available [facility] ([facility]) [address] [place], [address], 08/23/2022 17:10:19 08/23/19 23 08/23/2022 COMP. METAB OLIC PANEL (14) ALT (SGPT) 19 IU/L 0-32 Not Available [facility] ([facility]) [address] [place], [address], 08/23/2022 17:10:19 08/23/19 23 08/23/2022 HEMOG LOBIN A1C hemoglobin A1C 5.5 % 4.8-5. 6 Predi abete s: 5.7 - 6.4 Diabe pineda: >6.4 Glyce eligio contr ol for adult s with diabe pineda: <7.0 Not Available [facility] ([facility]) [address] [place], [address], 08/23/2022 17:10:19 08/23/1908/23/2022 CBC WITH DIFFE RENTI AL/PL ATELE T WBC 6.9 x10e3 /uL 3.4-10 .8 Not Available [facility] ([facility]) [address] [place], [address], 08/23/2022 17:10:20 08/23/19 23 08/23/2022 CBC WITH DIFFE RENTI AL/PL ATELE T RBC 3.95 x10e6 /uL 3.77-5 .28 Not Available [facility] ([facility]) [address] [place], [address], 08/23/2022 17:10:20 08/23/19 23 08/23/2022 CBC WITH DIFFE RENTI AL/PL ATELE T hemoglobin 12.1 g/dL 11.1-1 5.9 Not Available [facility] ([facility]) [address] [place], [address], 08/23/2022 17:10:20 08/23/19 23 08/23/2022 CBC WITH DIFFE RENTI AL/PL ATELE T hematocrit 36.4 % 34.0-4 6.6 Not Available [facility] ([facility]) [address] [place], [address], 08/23/2022 17:10:20 08/23/19 23 08/23/2022 CBC WITH DIFFE RENTI AL/PL ATELE T MCV 92 fL 79-97 Not Available [facility] ([facility]) [address] [place], [address], 08/23/2022 17:10:20 08/23/19 23 08/23/2022 CBC WITH DIFFE RENTI AL/PL ATELE T MCH 30.6 pg 26.6-3 3.0 Not Available [facility] ([facility]) [address] [place], [address], 08/23/2022 17:10:20 08/23/19 23 08/23/2022 CBC WITH DIFFE RENTI AL/PL ATELE T MCHC 33.2 g/dL 31.5-3 5.7 Not Available [facility] ([facility]) [address] [place], [address], 08/23/2022 17:10:20 08/23/19 23 08/23/2022 CBC WITH DIFFE RENTI AL/PL ATELE T RDW 13.2 % 11.7-1 5.4 Not Available [facility] ([facility]) [address] [place], [address], 08/23/2022 17:10:20 08/23/19 23 08/23/2022 CBC WITH DIFFE RENTI AL/PL ATELE T platelets 290 x10e3 /uL 150-45 0 Not Available [facility] ([facility]) [address] [facility], [place], [address], 08/23/2022 17:10:20 08/23/19 23 08/23/2022 CBC WITH DIFFE RENTI AL/PL ATELE T neutrophils 53 % notest ab. Not Available [facility] ([facility]) [address] [facility], [place], [address], 08/23/2022 17:10:20 08/23/19 23 08/23/2022 CBC WITH DIFFE RENTI AL/PL ATELE T lymphs 37 % notest ab. Not Available [facility] ([facility]) [address] [facility], [place], [address], 08/23/2022 17:10:20 08/23/19 23 08/23/2022 CBC WITH DIFFE RENTI AL/PL ATELE T monocytes 7 % notest ab. Not Available [facility] ([facility]) [address] [facility], [place], [address], 08/23/2022 17:10:20 08/23/19 23 08/23/2022 CBC WITH DIFFE RENTI AL/PL ATELE T eos 2 % notest ab. Not Available [facility] ([facility]) [address] [facility], [place], [address], 08/23/2022 17:10:20 08/23/19 23 08/23/2022 CBC WITH DIFFE RENTI AL/PL ATELE T basos 1 % notest ab. Not Available [facility] ([facility]) [address] [facility], [place], [address], 08/23/2022 17:10:20 08/23/19 23 08/23/2022 CBC WITH DIFFE RENTI AL/PL ATELE T neutrophils (absolute) 3.7 x10e3 /uL 1.4-7. 0 Not Available [facility] ([facility]) [address] [facility], [place], [address], 08/23/2022 17:10:20 08/23/19 23 08/23/2022 CBC WITH DIFFE RENTI AL/PL ATELE T lymphs (absolute) 2.6 x10e3 /uL 0.7-3. 1 Not Available [facility] ([facility]) [address] [facility], [place], [address], 08/23/2022 17:10:20 08/23/19 23 08/23/2022 CBC WITH DIFFE RENTI AL/PL ATELE T monocytes(ab solute) 0.5 x10e3 /uL 0.1-0. 9 Not Available [facility] ([facility]) [address] [facility], [place], [address], 08/23/2022 17:10:20 08/23/19 23 08/23/2022 CBC WITH DIFFE RENTI AL/PL ATELE T eos (absolute) 0.1 x10e3 /uL 0.0-0. 4 Not Available [facility] ([facility]) [address] [facility], [place], [address], 08/23/2022 17:10:20 08/23/19 23 08/23/2022 CBC WITH DIFFE RENTI AL/PL ATELE T baso (absolute) 0.0 x10e3 /uL 0.0-0. 2 Not Available [facility] ([facility]) [address] [place], [address], 08/23/2022 17:10:20 08/23/19 23 08/23/2022 CBC WITH DIFFE RENTI AL/PL ATELE T immature granulocytes 0 % notest ab. Not Available [facility] ([facility]) [address] [facility], [place], [address], 08/23/2022 17:10:20 08/23/19 23 08/23/2022 CBC WITH DIFFE RENTI AL/PL ATELE T immature grans (abs) 0.0 x10e3 /uL 0.0-0. 1 Not Available [facility] ([facility]) [address] [facility], [place], [address], 08/23/2022 17:10:20 01/24/20 24 01/24/2024 LIPID PANEL cholesterol, total 170 mg/dL 100-19 9 Not Available [facility] [address] [place] [address], [address], 01/25/2024 00:07:54 01/24/20 24 01/24/2024 LIPID PANEL triglyceride s 69 mg/dL 0-149 Not Available [facility] [address] [place] [address], [address], 01/25/2024 00:07:54 01/24/20 24 01/24/2024 LIPID PANEL HDL cholesterol 82 mg/dL 40-999 Not Available [facility] [address] [place], [address], 01/25/2024 00:07:54 01/24/20 24 01/24/2024 LIPID PANEL VLDL cholesterol gunjan 14 mg/dL 5-40 Not Available [facility] [address] [place], [address], 01/25/2024 00:07:54 01/24/20 24 01/24/2024 LIPID PANEL LDL chol calc ([facility]) 84 mg/dL 0-99 Not Available [facility] [address] [place], [address], 01/25/2024 00:07:54 01/24/20 24 01/24/2024 COMP. METAB OLIC PANEL (14) glucose 99 mg/dL 70-99 Not Available [facility] [address] [place], [address], 01/25/2024 00:07:55 01/24/20 24 01/24/2024 COMP. METAB OLIC PANEL (14) BUN 8 mg/dL 6-20 Not Available [facility] [address] [place], [address], 01/25/2024 00:07:55 01/24/20 24 01/24/2024 COMP. METAB OLIC PANEL (14) creatinine 0.82 mg/dL 0.76-1 .27 Not Available [facility] [address] [place] [address], [address], 01/25/2024 00:07:55 01/24/20 24 01/24/2024 COMP. METAB OLIC PANEL (14) eGFR 95 >=60 Units for eGFR value s are mL/mi n/1.7 3 The eGFR Calcu latio n has not been valid ated for patie nts under the age of 18. If test resul ts are displ ayed for a patie nt under the age of 18, disre shandra that value . Not Available [facility] [address] [place] [address], [address], 01/25/2024 00:07:55 01/24/20 24 01/24/2024 COMP. METAB OLIC PANEL (14) BUN/creatini ne ratio 10 9-23 Not Available [facility] [address] [place] [address], [address], 01/25/2024 00:07:55 01/24/20 24 01/24/2024 COMP. METAB OLIC PANEL (14) sodium 141 mmol/ L 134-14 4 Not Available [facility] [address] [place] [address], [address], 01/25/2024 00:07:55 01/24/20 24 01/24/2024 COMP. METAB OLIC PANEL (14) potassium 4.2 mmol/ L 3.5-5. 2 Not Available [facility] [address] [place] [address], [address], 01/25/2024 00:07:55 01/24/20 24 01/24/2024 COMP. METAB OLIC PANEL (14) chloride 105 mmol/ L 96-106 Not Available [facility] [address] [place], [address], 01/25/2024 00:07:55 01/24/20 24 01/24/2024 COMP. METAB OLIC PANEL (14) carbon dioxide, total 21 mmol/ L 20-29 Not Available [facility] [address] [place] [address], [address], 01/25/2024 00:07:55 01/24/20 24 01/24/2024 COMP. METAB OLIC PANEL (14) calcium 9.2 mg/dL 8.7-10 .2 Not Available [facility] [address] [place] [address], [address], 01/25/2024 00:07:55 01/24/20 24 01/24/2024 COMP. METAB OLIC PANEL (14) protein, total 7.0 g/dL 6.0-8. 5 Not Available [facility] [address] [place], [address], 01/25/2024 00:07:55 01/24/20 24 01/24/2024 COMP. METAB OLIC PANEL (14) albumin 3.9 g/dL 3.9-4. 9 Not Available [facility] [address] [place], [address], 01/25/2024 00:07:55 01/24/20 24 01/24/2024 COMP. METAB OLIC PANEL (14) globulin, total 3.1 g/dL 1.5-4. 5 Not Available [facility] [address] [place] [address], [address], 01/25/2024 00:07:55 01/24/20 24 01/24/2024 COMP. METAB OLIC PANEL (14) A/G ratio 1.3 1.2-2. 2 Not Available [facility] [address] [place] [address], [address], 01/25/2024 00:07:55 01/24/20 24 01/24/2024 COMP. METAB OLIC PANEL (14) bilirubin, total <=0.2 mg/dL 0.0-1. 2 Not Available [facility] [address] [place] [address], [address], 01/25/2024 00:07:55 01/24/20 24 01/24/2024 COMP. METAB OLIC PANEL (14) alkaline phosphatase 54 IU/L 44-121 Not Available [facility] [address] [place] [address], [address], 01/25/2024 00:07:55 01/24/20 24 01/24/2024 COMP. METAB OLIC PANEL (14) AST (SGOT) 14 IU/L 0-40 Not Available [facility] [address] [place] [address], [address], 01/25/2024 00:07:55 01/24/20 24 01/24/2024 COMP. METAB OLIC PANEL (14) ALT (SGPT) 13 IU/L 0-32 Not Available [facility] [address] [place] [address], [address], 01/25/2024 00:07:55 01/24/20 24 01/24/2024 CBC WITH DIFFE RENTI AL/PL ATELE T WBC 5.8 x10e3 /uL 3.4-10 .8 Not Available [facility] [address] [place] [address], [address], 01/25/2024 00:07:57 01/24/20 24 01/24/2024 CBC WITH DIFFE RENTI AL/PL ATELE T RBC 4.01 x10e6 /uL 3.77-5 .28 Not Available [facility] [address] [place] [address], [address], 01/25/2024 00:07:57 01/24/20 24 01/24/2024 CBC WITH DIFFE RENTI AL/PL ATELE T hemoglobin 12.1 g/dL 11.1-1 5.9 Not Available [facility] [address] [place], [address], 01/25/2024 00:07:57 01/24/20 24 01/24/2024 CBC WITH DIFFE RENTI AL/PL ATELE T hematocrit 37.3 % 34.0-4 6.6 Not Available [facility] [address] [place], [address], 01/25/2024 00:07:57 01/24/20 24 01/24/2024 CBC WITH DIFFE RENTI AL/PL ATELE T MCV 93 fL 79-97 Not Available [facility] [address] [place], [address], 01/25/2024 00:07:57 01/24/20 24 01/24/2024 CBC WITH DIFFE RENTI AL/PL ATELE T MCH 30.2 pg 26.6-3 3.0 Not Available [facility] [address] [place], [address], 01/25/2024 00:07:57 01/24/20 24 01/24/2024 CBC WITH DIFFE RENTI AL/PL ATELE T MCHC 32.4 g/dL 31.5-3 5.7 Not Available [facility] [address] [place], [address], 01/25/2024 00:07:57 01/24/20 24 01/24/2024 CBC WITH DIFFE RENTI AL/PL ATELE T RDW 12.8 % 11.5-1 4.5 Not Available [facility] [address] [place], [address], 01/25/2024 00:07:57 01/24/20 24 01/24/2024 CBC WITH DIFFE RENTI AL/PL ATELE T platelets 328 x10e3 /uL 150-45 0 Not Available [facility] [address] [place], [address], 01/25/2024 00:07:57 01/24/20 24 01/24/2024 CBC WITH DIFFE RENTI AL/PL ATELE T neutrophils 49 % notest b. Not Available [facility] [address] [place], [address], 01/25/2024 00:07:57 01/24/20 24 01/24/2024 CBC WITH DIFFE RENTI AL/PL ATELE T lymphs 41 % notest b. Not Available [facility] [address] [place] [address], [address], 01/25/2024 00:07:57 01/24/20 24 01/24/2024 CBC WITH DIFFE RENTI AL/PL ATELE T monocytes 7 % notest b. Not Available [facility] [address] [place] [address], [address], 01/25/2024 00:07:57 01/24/20 24 01/24/2024 CBC WITH DIFFE RENTI AL/PL ATELE T eos 2 % notest b. Not Available [facility] [address] [place], [id number], 01/25/2024 00:07:57 01/24/20 24 01/24/2024 CBC WITH DIFFE RENTI AL/PL ATELE T basos 1 % notest b. Not Available [facility] [address] [place] [address], [id number], 01/25/2024 00:07:57 01/24/20 24 01/24/2024 CBC WITH DIFFE RENTI AL/PL ATELE T neutrophils (absolute) 2.9 x10e3 /uL 1.4-7. 0 Not Available [facility] [address] [place], [id number], 01/25/2024 00:07:57 01/24/20 24 01/24/2024 CBC WITH DIFFE RENTI AL/PL ATELE T lymphs (absolute) 2.4 x10e3 /uL 0.7-3. 1 Not Available [facility] [address] [place], [id number], 01/25/2024 00:07:57 01/24/20 24 01/24/2024 CBC WITH DIFFE RENTI AL/PL ATELE T monocytes(ab solute) 0.4 x10e3 /uL 0.1-0. 9 Not Available [facility] [address] [place] [address], [address], 01/25/2024 00:07:57 01/24/20 24 01/24/2024 CBC WITH DIFFE RENTI AL/PL ATELE T eos (absolute) 0.1 x10e3 /uL 0.0-0. 4 Not Available [facility] Department [address] [place], [address], 01/25/2024 00:07:57 01/24/20 24 01/24/2024 CBC WITH DIFFE RENTI AL/PL ATELE T baso (absolute) 0.0 x10e3 /uL 0.0-0. 2 Not Available [facility] Department [address] [place] [address], [address], 01/25/2024 00:07:57 01/24/20 24 01/24/2024 CBC WITH DIFFE RENTI AL/PL ATELE T immature granulocytes 0.5 % notest b. Not Available [facility] Department [address] [place], [address], 01/25/2024 00:07:57 01/24/20 24 01/24/2024 CBC WITH DIFFE RENTI AL/PL ATELE T immature grans (abs) 0.0 x10e3 /uL 0.0-0. 1 Not Available [facility] Department [address] [place], [address], 01/25/2024 00:07:57 01/24/20 24 01/24/2024 CBC WITH DIFFE RENTI AL/PL ATELE T NRBC 0 % 0-0 Not Available [facility] Department [address] [place], [address], 01/25/2024 00:07:57 01/24/20 24 01/25/2024 TSH+F REE T4 TSH 0.613 uIU/m L 0.450- 4.500 Not Available [facility] ([facility]) [address] [place], [address], 01/25/2024 08:30:54 01/24/20 24 01/25/2024 TSH+F REE T4 T4,free(dire ct) 1.19 NG/dL 0.82-1 .77 Not Available [facility] ([facility]) [address] [place], [address], 01/25/2024 08:30:54 01/24/20 24 01/25/2024 HEMOG LOBIN A1C hemoglobin A1C 5.5 % 4.8-5. 6 Predi abete s: 5.7 - 6.4 Diabe pineda: >6.4 Glyce eligio contr ol for adult s with diabe pineda: <7.0 Not Available [facility] ([facility]) [address] [place], [address], 01/25/2024 08:30:55 01/24/20 24 01/25/2024 VITAM IN D, 25-HY DROXY vitamin D, 25-hydroxy 15.4 NG/mL 30.0-1 00.0 below low normal Vitam in D defic iency has been defin ed by the Insti tute of Medic ine and an Endoc rine Socie ty pract ice guide line as a level of serum 25-OH vitam in D less than 20 ng/mL (1,2) . The Endoc rine Socie ty went on to [facility] er defin e vitam in D insuf ficie ncy as a level betwe en 21 and 29 ng/mL (2). 1. IOM (Inst itute of Medic ine). 2010. Georges ry refer ence jovani es for calci um and D. Lluvia laguna [place]: The [facility] . 2. Anibal k MF, Binkl ey [place], Bisch off-F errar i PYLE, et al. Evalu ation , treat ment, and preve ntion of vitam in D defic iency : an Endoc rine Socie ty clini gunjan pract ice guide line. JCEM. 2010; 96(7) :1911 -30. Not Available [facility] ([facility]) [address] [facility], [place], [address], 01/25/2024 08:30:56 08/31/19 23 08/30/2022 XR, knee, 3 view No observ ation record ed. [address] [address], [place], [address], 09/01/2022 13:21:03 08/31/19 23 08/30/2022 XR, lumba r spine , 2 view No observ ation record ed. [address] [facility], [place], [address], 09/01/2022 13:21:04 09/01/19 23 08/30/2022 XR, knee, 3 view No observ ation record ed. [address] [facility], [place], [address], 09/01/2022 13:21:04 05/01/19 24 05/01/2023 XR, chest , 2 view No observ ation record ed. [address] [address], [place], [address], 05/02/2023 12:43:14 Result Notes None recorded. 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, [place], [address], [place] [facility] 2 13:07:40 Chest pain 44738356 Active 2021 HEATHER BAKER Attn: Accountlilian wilks,[address] [facility], [place], [address], [place] [facility] 2 13:07:41 Pain of bilateral knee joints 2154789339477 04 Active 2022 HAETHER BAKER Attn: Accountin lashaun,[address] [facility], [place], [address], [place] [facility] 3 14:17:27 Atypical chest pain 699536523 Active 2022 HEATHER BAKER Attn: Accountin g,[address] [facility], [place], [address], [place] [facility] 3 14:17:29 Lumbar radiculopat hy 787562319 Active 2022 HEATHER BAKER Attn: Accountin g,[address] [facility], [place], [address], [place] [facility] 3 12:39:33 Problem Notes Documentation Provider Name and Address Organization Details Recorded 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 Patient : 1985. Patient . Michelle Michel null, [facility] 01/30/2024 09:58:29 Medical Equipment None Reported. Allergies Allergen ID Allergen Name Allergen Category Reaction Reaction Severity Criticality Documentation Date Start Date Code Code System Note Provider Name and Address Organization Details Recorded Time 547602 Product containin g penicilli n (product) medicatio n Not available Not available Not available 11/17/2020 24263 [id number] SN[address] Douglass, [facility] 11:33:09 Medications Name Sig Start Date Stop Date Status Note LastModified by Organization Details LastModified Time amoxicillin 500 mg capsule TAKE 2 CAPSULES BY MOUTH NOW, THEN TAKE 1 CAPSULE BY MOUTH FOUR TIMES DAILY UNTIL GONE 11/15 completed Not Available Not Available Not Available acetaminoph en 325 mg tablet TAKE 2 TABLETS BY MOUTH EVERY 6 HOURS NEEDED FOR PAIN 11/17 completed Not Available Not Available Not Available clindamycin HCl 300 mg capsule TAKE 1 CAPSULE BY MOUTH THREE TIMES A DAY 01/23 completed Not Available Not Available Not Available cetirizine 10 mg tablet TAKE 1 TABLET BY MOUTH EVERY DAY active Not Available Not Available No t Available fluconazole 150 mg tablet TAKE 1 TABLET BY MOUTH FOR 1 DOSE. MAY REPEAT IN 3 DAYS IF SYMPTOMS PERSIST 10/31 completed Not Available Not Available Not Available Claritin 10 mg tablet Take 1 tablet every day by oral route. 08/22 completed Not Available Not Available Not Available meloxicam 15 mg tablet TAKE 1 TABLET BY MOUTH EVERY DAY 01/23 completed Not Available Not Available Not Available metronidazo le 0.75 % (37.5 mg/5 gram) vaginal gel INSERT ONE APPLICATO RFUL VAGINALLY EVERY NIGHT FOR 5 NIGHTS. 11/17 completed Not Available Not Available Not Available metronidazo le 500 mg tablet TAKE 1 TABLET BY MOUTH TWICE A DAY FOR 7 DAYS 10/31 completed Not Available Not Available Not Available amlodipine 5 mg tablet TAKE 1 TABLET BY MOUTH EVERY DAY 01/23 completed Not Available Not Available Not Available amlodipine 10 mg tablet TAKE 1 TABLET BY MOUTH EVERY DAY 2024 active Not Available Not Available Not Avai lable omeprazole 20 mg capsule,del ayed release TAKE 1 CAPSULE BY MOUTH EVERY DAY 01/23 completed Not Available Not Available Not Available albuterol sulfate HFA 90 mcg/actuati on aerosol inhaler INHALE 2 PUFFS BY MOUTH EVERY 4 HOURS NEEDED active Not Available Not Available No t Available fluticasone propionate 50 mcg/actuati on nasal spray,suspe nsion INSTILL 1 SPRAY INTO THE NOSTRILS ONCE DAILY active Not Available Not Available No t Available Symbicort 80 mcg-4.5 mcg/actuati on HFA aerosol inhaler INHALE 2 PUFFS TWICE A DAY active Not Available Not Available No t Available cholecalcif everton (vitamin D3) 125 mcg (5,000 unit) tablet TAKE 1 TABLET BY MOUTH EVERY DAY 2024 active Not Available Not Available Not Petr lable EluRyng 0.12 mg-0.015 mg/24 hr vaginal ring INSERT 1 RING VAGINALLY X3 WEEKS THEN REMOVE FOR 1 WEEK active Not Available Not Available No t Available Vitals Date Recorded Body height Body mass index (BMI) Body weight Heart rate Oxygen saturation Systolic And Diastolic Provider Name and Address Organization Details Last Updated DateTime 5 161.29 cm 35.7 kg/m2 88634.4 4 g 82 /min 97 % 164/85 mm[Hg] Claudia Rider [place] [facility] 5 11:55:43 Date Recorded Body height Body mass index (BMI) Body weight Heart rate Oxygen saturation Systolic And Diastolic Provider Name and Address Organization Details Last Updated DateTime 3 161.29 cm 35.6 kg/m2 20676.8 4 g 75 /min 99 % 124/82 mm[Hg] ELOINA Curiel - [facility] 3 12:12:28 Date Recorded Body height Body mass index (BMI) Body weight Heart rate Oxygen saturation Systolic And Diastolic Provider Name and Address Organization Details Last Updated DateTime 3 161.29 cm 35.4 kg/m2 14659.2 5 g 66 /min 98 % 130/70 mm[Hg] Claudia Rider MA [facility] 3 11:15:38 Date Recorded Body height Body mass index (BMI) Body weight Heart rate Oxygen saturation Systolic And Diastolic Provider Name and Address Organization Details Last Updated DateTime 3 161.29 cm 34.4 kg/m2 79861.5 g 82 /min 99 % 136/100 mm[Hg] Claudia Rider [place] [facility] 11:00:26 Date Recorded Body height Body mass index (BMI) Body weight Heart rate Oxygen saturation Systolic And Diastolic Provider Name and Address Organization Details Last Updated DateTime 4 161.29 cm 34.9 kg/m2 50446.4 7 g 87 /min 98 % 131/84 mm[Hg] Claudia Rider MA [facility] 4 11:40:47 Social History Question Answer Notes LastModified by Organizat ion Details LastModified Time Tobacco Smoking Status Never Smoker [facility]ider [facility] 11/17/2020 11:36:32 In The 14 Days Before Symptom Onset, Have You Had Close Contact With A Laboratory-confirm ed COVID-19 While That Case Was Ill? No Information n ot available 11/17/2020 In The 14 Days Before Symptom Onset, Have You Had Close Contact With A Person Who Is Under Investigation For COVID-19 While That Person Was Ill? No Information not available 11/17/2020 Have You Been To An Area Known To Be High Risk For COVID-19? No Information not available 11/17/2020 What Was The Date Of Your Most Recent Tobacco Screening? 01/24/2024 Information not available 01/24/2024 Do You Have Smoke And Carbon Monoxide Detectors In Your Home? Yes Information not available 11/17/2020 Are You Passively Exposed To Smoke? No Information no t available 11/17/2020 Has Tobacco Cessation Counseling Been Provided? Yes Information not available 08/22/2022 On What Date Was Tobacco Cessation Counseling Provided? 10/05/2022 Information not available 10/05/2022 Sex: Female Functional Status Question Answer Note LastModified by Organizat ion Details LastModified Time Do you or have you ever used any other forms of tobacco or nicotine? Yes Information not available 11/17/2020 What is your level of alcohol consumption? Occasional Information not available 11/17/2020 Do you or have you ever used smokeless tobacco? Never used smokeless tobacco Information not available 11/17/2020 Do you or have you ever used e-cigarettes or vape? Never used electronic cigarettes Information not available 11/17/2020 Mental Status None recorded. Family History Relationship Description Onset Age of this Age Resolved Age Notes LastModified by Organization Details LastModified Time Father No current problems or disability Not available 11/17 11:35:44 Mother No current problems or disability Not available 11/17 11:35:44 Unspecified Relation Diabetes mellitus Not available 2020 11:35:56 Unspecified Relation Hypertensive disorder Not available 2020 11:36:02 Unspecified Relation Heart disease Not available 2020 11:36:08 Maternal Grandmother Acute stroke Not available 11/17/2020 11:43:51 Medical History Condition Response Coronary Artery Disease N Other N Atrial Fibrillation N High Blood Pressure N Thyroid Problems N Kidney or Bladder Problems N Depression N COPD N Blood Clots N GI Problems N Skin Problems N Anemia N Heart Attack ([place]) N Diabetes N Anxiety Disorder N Muscle, Joint, or Bone Problems N Seizures/Epilepsy N Acid Reflux (GERD) N Cancer N Stroke N Allergies N Asthma Y High Cholesterol N Hepatitis N Liver Disease N Headaches N Osteoporosis N Heart Failure N Gynecological History Statement/Question Response Duration of Flow (days) 8 Age at Menarche 16 Current Control Method Vaginal Rin g Date of LMP 01/06/2024 LMP Approximate Obstetrics History GPAL:G 2 P 1 0 1 1 Type Value Multiple Births 0 Full Term 1 Induced 0 Spontaneous 1 Premature 0 Living 1 Ectopics 0 Total 2 Past Encounters Encounter ID Performer Location Encounter Start Date Encounter Closed Date Diagnosis/Indication Diagnosis SNOMED-CT Code Diagnosis ICD10 Code Diagnosis IMO Codes Diagnosis Note [id number] HEATHER BAKER [facility]ly [facility] [address] [place] [address] 11/17/2020 11:15:27 11/24/2020 07:16:44 Adult health examination 739331960 Z00.00 Patient pmhxz asthma presents to establish. ROS+ chronic back pain, allergies, and headaches. - refill inhaler, f/u one month- UTD on pap smear, need record Chronic back pain 774113 002 G89.29 chronic back pain after epidural with radiation to right leg. aching constant. Patient stays active and tries to stretch. She agrees to do PT. Elevated blood-pressure reading without diagnosis of hypertension 791408686 R03.0 Patient has elevated BP today 128/98 and 140/92 on repeat, States she has never had elevated BP in the past. She works out and drinks mainly water. Does run in her family. Plan is to have her take BP in pharmacy and come back on Sunday for BP check. Once we have three BP reading we will initiate treatment. Advised to check BP regularly with a goal of <140/90, if BP consistent ly >140/90, advised to contact clinicDisc usmahad QUILES dietAdvise d weight loss and diet is best way to control BPAdvised 30 minutes of exercise minimum dailyAdvis ed tobacco, alcohol, caffeine all increase BPAdvised goal for BP is <140/90 Essential hypertension 25613043 I10 as above Asthma 447519319 J45.90 9 Patient diagnosed with asthma as a child. She has not had inhaler in a log time. Asthma exacerbate d by allergies but she takes daily claritin for this. She has not had any hospitaliz ations this year. Non-smoker . Plan is to start on albuterol and f/u in one month. If using >2x weekly she is to f/u sooner for maintenanc e. She has been on symbicort a long time ago. Abnormal c ervical Papanicolaou smear 412936623 R87.619 Patient follows with provided through [facility]. She had abnormal pap followed by normal colpo four years ago. Most recent pap was done two years ago and was normal. She will call them and see when her next appointmen t is. Need records. Headache 50684548 R51.9 daily headaches > 1 year. will obtain labs and get BP in office. f/u with PYLE diary one month [id number] HEATHER BAKER [facility] [address] [place] [address] 10/31/2021 12:08:10 11/01/2021 09:42:44 Chest pain 63617152 R07.9 chest pain daily or every other day lasting seconds. denies cp during her hour long walks or exertion. She does not know father hx and has not asked mom. grandma had multiple strokes and heart attacks. - hx of slightly elevated bp, working up- atypical chest pain, work up- bring GERD medication at next f/u- ER if chest pain worsens, persist, she verbalizes understand ing. Essential hypertension 11735890 I10 elevated BP today and last visit. she will take bp at home and message me on portal. she was set up during visit. f/u 2 weeks. - dash diet- exercise- work up atypical chest pain Obesity 903630960 E66.9 bmi 35 discussed healthy dietcontin ue walking daily2 week f/u [id number] HEATHER BAKER [facility] [address] [place] [address] 08/22/2022 12:04:11 08/22/2022 12:37:48 Adult health examination 812244020 Z00.00 Patient pmhxz asthma presents to establish. ROS+ chronic back pain, allergies, and headaches. - refill inhaler, f/u one month- UTD on pap smear, need record Seasonal a llergic rhinitis 869697605 J30.2 Chronic back pain 167352 002 G89.29 chronic back pain after epidural with radiation to right leg. aching constant. Patient stays active and tries to stretch. She agrees to do PT. Asthma 294758923 J45.90 9 Patient diagnosed with asthma as a child. She has not had inhaler in a log time. Asthma exacerbate d by allergies but she takes daily claritin for this. She has not had any hospitaliz ations this year. Non-smoker .PEX: no dyspnea. Lungs are clear.- control allergies- one month f.u Pain of bi lateral knee joints 0119960648 54051 M25.561 pain > 3 years affecting mobility. worse with walking and stairs. no known injury/PEX : normal ROM. tender on medial and lateral aspect on palpation. Atypical chest pain 1025 38900 R07.89 substernal sharp chest pain lasting seconds that occurs randomly. Does not occur with exercise. Patient had untreated GERD and has hx of asthma.BP controlled .cholester ol controlled -EKG- treat GERD- close f/u Gastroesop hageal reflux disease 071728742 K21.9 1.Avoid lying flat 3 to 4 hours after eating or drinking. 2.Elevate the head of bed 4-8 inches. 3.Avoid tight clothing around the waist. 4.Decrease dietary fat intake. 5. Avoid acidic foods (citrus and tomato-bas ed products), alcohol, caffeinate d beverages, chocolate, onions, garlic, salt, and peppermint oil. 6. Avoid large meals. 7. Avoid drinking coffee, or carbonated beverages. 8. Weight loss can help with symptoms, try to diet and exercise. [id number] HEATHER BAKER [facility] [address] [place] [address] 10/05/2022 11:09:43 10/05/2022 11:32:49 Asthma 197524092 J45.909 Patient diagnosed with asthma as a child.usin g rescue inhaler daily. Asthma exacerbate d by allergies but she takes daily claritin for this. She has not had any hospitaliz ations this year. Non-smoker . step up therapyPEX : no dyspnea. Lungs are clear.- control allergies- one month f.u- start symbicort, rinse mouth after every use Pain of bi lateral knee joints 7041863702 48802 M25.561 pain > 3 years affecting mobility. worse with walking and stairs. no known injury/PEX : normal ROM. tender on medial and lateral aspect on palpation. Gastroesop hageal reflux disease 029977211 K21.00 GERD with esophagiti s 1.Avoid lying flat 3 to 4 hours after eating or drinking.2 .Elevate the head of bed 4-8 inches.3.A void tight clothing around the waist.4.De crease dietary fat intake.5. Avoid acidic foods (citrus and tomato-bas ed products), alcohol, caffeinate d beverages, chocolate, onions, garlic, salt, and peppermint oil.6. Avoid large meals.7. Avoid drinking coffee, or carbonated beverages. 8. Weight loss can help with symptoms, try to diet and exercise. Lumbar radiculopathy 128 610076 M54.16 contestant lower back pain with numbness on left side to knee.PT did not improve painxray (08/30/22) : S1 unfused posterior arch. transition al anatomy, partial lumbarizat ion of S1, rudimentry disc at s1-2 Essential hypertension 45530296 I10 elevated BP today and last visit. she will take bp at home and message me on portal. she was set up during visit. f/u 2 weeks. - dash diet- exercise- work up atypical chest pain [id number] HEATHER BAKER [facility] [address] [place] [address] 11/15/2022 10:55:15 11/15/2022 12:17:34 Asthma 519509804 J45.909 Patient diagnosed with asthma as a child.usin g rescue inhaler daily. Asthma exacerbate d by allergies and is now controlled without treatment, Non-smoker .PEX: no dyspnea. Lungs are clear.- control allergies- one month f.u Pain of bi lateral knee joints 1809553783 03087 M25.561 pain > 3 years affecting mobility. worse with walking and stairs. no known injury/PEX : normal ROM. tender on medial and lateral aspect on palpation. Gastroesop hageal reflux disease 031914066 K21.00 GERD with esophagiti s 1.Avoid lying flat 3 to 4 hours after eating or drinking.2 .Elevate the head of bed 4-8 inches.3.A void tight clothing around the waist.4.De crease dietary fat intake.5. Avoid acidic foods (citrus and tomato-bas ed products), alcohol, caffeinate d beverages, chocolate, onions, garlic, salt, and peppermint oil.6. Avoid large meals.7. Avoid drinking coffee, or carbonated beverages. 8. Weight loss can help with symptoms, try to diet and exercise. Essential hypertension 02983917 I10 Patient lost amlodipine . On medication BP was 136/90's. will increase dose. f/u in clinic for BP check next week. monitor BP at home. - dash diet- exercise- work up atypical chest pain Obesity 621824226 E66.9 bmi 35 discussed healthy dietcontin ue walking daily2 week f/u [id number] Felton Geronimo MD [facility] [address] [place] [address] 01/24/2024 11:35:59 01/24/2024 12:00:05 Adult health examination 833483881 Z00.01 Patient pmhxz asthma presents to establish. ROS+ allergies controlled with zyretec. Family hx updated today. medication s updated. - UTD on pap smear, need record- f/u prn- negative PHQ- declines flu vaccine Obesity 476397962 E66.9 bmi 34.9 discussed healthy dietgiven print outs of diet plansconti nue walking daily [id number] Felton Geronimo MD [facility] [address] [place] [address] 06/03/2024 11:48:57 06/03/2024 12:08:22 Obesity 894873529 E66.9 bmi 35.7 Moderate p ersistent asthma 376428632 J45.40 here for asthma. Used inhaler before visit. On exam lungs are clear.- obtain xray- start maintenanc e- send to [facility] Seasonal a llergic rhinitis 392379773 J30.2 Essential hypertension 44255099 I10 164/85, not controlled . Patient on amlodipine 5mg instead of 10mg.. 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 - dash diet- exercise- work up atypical chest pain Health Concerns Section Related Observation LastModified by Organization Detai ls LastModified Time None Recorded Concern Status LastModified by Organization Details LastModified Time None Recorded Advance Directives Directive None Recorded Payers Insurance Date Sequence Insurance Name Policy Number Policy Seth Covered Member ID Seth Member ID Guarantor Name 05/31/2024 1 [facility] - DOS ON OR AFTER 20 (MEDICAID REPLACEMENT - HMO) Hilaria Magana [id number] Hilaria Magana 08/22/[address] [place] [address] ([facility]) Hilaria Magana [id number] Hilaria Magana Notes Date Note Type Note Provider Name and Address Organization Details Recorded Time 08/22/2022 text/html Hilaria presents for f/u asthma: wheezing daily for the last few weeks. suffering from allergies and taking otc medication from [employer]. getting winded in the daytime. using inhaler every other day over last few weeks. chest pain: pain is substernal and sharp. occurs sitting or standing. They are random and happened a few times per week. lasts seconds feels like poking pain. hurts to breathe when is happens. Does not happen when she works out. She does have terrible acid reflux. She admits to eating spicy foods and tomato containing foods. She denies sodas or chocolate.She takes tums on occasion. she walks in park and has b/l knee pain >3 years. recently she had to stop from having so much pain.. pain affects both sides of her knees. also worse walking up stairs. no pain when waking up in the morning. denies sob, palpitations fam hx: grandma had htn, DM, cancer (unknown), 5 strokes and 3 heart attacks dad hx unknown. niece has lupus. HEATHER BAKER Attn: Accounting,[address] [place], [address], [facility] 08/22/2022 14:20:57 10/05/2022 text/html Hilaria presents for f/u asthma: wheezing daily for the last few weeks. suffering from allergies and taking otc medication from [employer]. getting winded in the daytime. using inhaler every other day over last few weeks. GERD: only better with omeprazole at times. if does not take dose she is woken up from burning in her throat. She admits to eating spicy foods and tomato containing foods. She denies sodas or chocolate.She takes tums on occasion. She has cut back on these back/knees: finished PT w/o [facility] improvement. Xray show mild tricompartment OA B/L and back shows transitional vertebrae. she walks in park and has b/l knee pain >3 years. recently she had to stop from having so much pain.. pain affects both sides of her knees. also worse walking up stairs. no pain when waking up in the morning. denies sob, palpitations fam hx: maida had htn, DM, cancer (unknown), 5 strokes and 3 heart attacks dad hx unknown. niece has lupus. HEATHER BAKER Attn: Accounting,[address], [place], [address], [place] [facility] 10/05/2022 12:45:00 11/15/2022 text/html Hilaria presents for f/u asthma: wheezing daily for the last few weeks. suffering from allergies and taking otc medication from [facility]. getting winded in the daytime. using inhaler every other day over last few weeks. GERD: EGD normal back/knees: finished PT w/o [facility]. Xray show mild tricompartment OA B/L and back shows transitional vertebrae. she walks in park and has b/l knee pain >3 years. recently she had to stop from having so much pain.. pain affects both sides of her knees. also worse walking up stairs. no pain when waking up in the morning. denies sob, palpitations fam hx: maida had htn, DM, cancer (unknown), 5 strokes and 3 heart attacks dad hx unknown. niece has lupus. Hilaria presents for f/u asthma: controlled w/o medication GERD: following DR Blevins. EGD negative. has f/u this month. BP: BP still elevated on amlodipine 5mg. Will continue denies sob, palpitations fam hx: maida had htn, DM, cancer (unknown), 5 strokes and 3 heart attacks dad hx unknown. niece has lupus. HEATHER BAKER Attn: Accounting,[address], [place], [address], [place] 11/15/2022 11:20:57 01/24/2024 text/html here for wellness no taking her BP medication. Eats fast food most days. Has tried to cut out soda. denies cp, sob, palpitations. HEATHER BAKER Attn: Accounting,[address], [place], [address], [place] 01/25/2024 11:05:34 06/03/2024 text/html Hilaria is here for asthma F/U Since March has had wheezing daily and having to use her inhaler everyday. she denies smoking cigarettes, new pets, moving to new location. She used to take daily inhaler and did well on symbicort. Has not had hospitalization. wheezing is affecting her sleep. She used inhaler before walking into visit. Her BP is elevated and admits to only taking 5mg and not 10mg amlodipine. HEATHER BAKER Attn: [employer] [place], [address], [place] [facility] 06/04/2024 11:12:49 OBGyn Episode No OBEpisode recorded.
--- OUTSIDE RECORDS SUMMARY | 2025-03-02 18:33 | XMS_ITS | Clinical Summary ---
Author Organization [facility] al Address [address] [place] [address] Care Team Providers Care Process Artist Name Role Phone No, Physician Primary Care Provider [phone] Allergies Active Allergy Reactions Criticality Noted Date Comments Penicillin G Unknown 11/12/2018 Medications etonogestreL-ethi nyl estradioL (EluRyng) 0.12-0.015 mg/24 hr vaginal ringIndications:E ncounter for surveillance of nuvaring INSERT 1 RING VAGINALLY X3 WEEKS THEN REMOVE FOR 1 WEEK 3 each 3 4 Active Active Problems Problem Noted Date Diagnosed Date Cervical high risk human pap illomavirus (HPV) DNA test positive 08/23/2017 Nuvaring contraception 07/13/2017 Family History Medical History Relation Name Comments Breast cancer Neg Hx Colon cancer Neg Hx Ovarian cancer Neg Hx Social History Tobacco Use Types Packs/Day Years Used Date Smoking Tobacco: Never Alcohol Use Standard Drinks/Week Comments Yes 0 (1 standard drink = 0.6 oz pur e alcohol) AUDIT-C Answer Date Recorded Frequency of Alcohol Consumption Monthly or less 12/30/2019 Average Number of Drinks 1 or 2 020 Frequency of Binge Drinking Not on file 12/11 Personal Safety Answer Date Recorded Getting School Help Needed Not on file 05/04 Comments No Sex and Gender Information Value Date Recorded Sex Assigned at Not on file Legal Sex Female 9:13 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 Gender Identity Not on file Sexual Orientation Not on file Obstetrics History Para Term AB IAB SAB Ectopic Multiple Livin g Live Births 2 1 1 0 1 0 1 0 0 1 1 Date Outcome GA Total Labor Labor/2nd/3rd Weight Sex Type Anes PTL Shirin A1 A5 Name Clin Term SAB Last Filed Vital Signs Vital Sign Reading Time Taken Comments Blood Pressure 112/68 09/06/2023 3:30 PM CDT Pulse 0 12/30/2015 9:00 AM CDT Temperature 36.2 C (97.1 F) 09/28/2015 4:59 PM CDT Respiratory Rate - - Oxygen Saturation 100% 09/28/2015 4:59 PM CDT Inhaled Oxygen Concentration - - Weight 88.9 kg (196 lb) 09/06/2023 3:30 PM CDT Height 157.5 cm (5' 2) 09/06/2023 3:30 PM CDT Body Mass Index 35.85 09/06/2023 3:30 PM CDT Plan of Treatment Health Maintenance Due Date Last Done Comments Cervical Cancer Screening 1987 Depression Screening 1987 Varicella Vaccines (1 of 2 - 13+ 2-dose series) 2000 DTaP/Tdap/Td Vaccine (5 - Tdap) 08/07/2001 08/06/2001, 08/23/1992, 06/05/1990, Additional history exists Pneumococcal vaccine <65 (1 of 2 - PCV) 2006 Regular Well Visit/Exam 18-64 09/05/2024, 06/07/2022, 02/24/2021, Additional history exists Influenza Vaccine (#1) 2024 Hepatitis B Screening Completed 08/07/1997, 998 HPV Vaccines Completed 05/19/2008, 01/10, 04/24/2007 Hepatitis C Screening Completed 02/24/2021, 018 Procedures Procedure Name Priority Date/Time Associated Diagnosis Comments HEPATITIS PANEL, ACUTE Routine 02/24/2021 2:58 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 Screen for STD (sexually transmitted disease) from Last 3 Months or Most Recently Relevant to Health Maintenance Results * Hepatitis panel, acute (02/24/2021 2:58 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) Hep A IgM Nonreactive Nonreactive [facility] Comment: Interpretive Data: If Hep A IgM Ab is reported as Equivocal, a new sample should be drawn in two weeks for testing. Current interpretive data was last revised on 19. Hep B core IgM Nonreactive Nonreactive [facility] Comment: Interpretive Data If HepB Core IgM Ab is reported as Equivocal, a new sample should be drawn in two weeks for testing. Current interpretive data was last revised on 19. Hep C Ab Nonreactive Nonreactive [facility] Comment: Interpretive Data Nonreactive: Antibodies to HCV not detected. Does NOT exclude the possibility of recent exposure to HCV. Equivocal: Equivocal for HCV antibodies. Supplemental molecular testing will be automatically performed to determine infection status in accordance with current CDC screening recommendations. Reactive: Positive for HCV antibodies. This may represent current or past HCV infection. Supplemental molecular testing will be automatically performed to determine current infection status in accordance with current CDC screening recommendations. Interpretive data was last revised on 2019. HepBsAg Nonreactive Nonreactive [facility] Blood 02/24/2021 2:58 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 02/24/2021 5:06 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 Esequiel Domingo MD LAB MICROBIOLOGY - GENERAL ORDERABLES Final Result Performing Organization Address City/State/[facility] Co de Phone Number [facility] [address] [facility] Department [place] [address] from Last 3 Months or Most Recently Relevant to Health Maintenance Insurance [facility] PL[facility] Care Teams Process Artist Relationship Specialty Start Date End Date No, Physician PCP - General 02/24/21
--- OUTSIDE RECORDS SUMMARY | 2025-03-02 18:33 | XMS_ITS | Encounter Summary ---
Author Organization 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 us Historical Provider Final Res ult documented in this encounter Visit Diagnoses Not on filedocumented in this encounter Care Teams Ore Storage Drier Relationship Specialty Start Date End Date No, Physician PCP - General 02/24/21 documented as of this encounter
--- OUTSIDE RECORDS SUMMARY | 2025-03-02 18:33 | XMS_ITS | Encounter Summary ---
Author Organization 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 Historical Provider LAB CYTOLOGY ORDERABLES F inal Result * DISCHARGE LABORATORY CUMULATIVE REPORT (07/13/2017 12:00 AM CDT) Narrative 07/13/2017 12:00 AM CDT Ordered by an unspecified provider. us Historical Provider LAB BLOOD ORDERABLES Daphnie l Result documented in this encounter Visit Diagnoses Not on filedocumented in this encounter Care Teams Quantitative Manager Relationship Specialty Start Date End Date No, Physician PCP - General 02/24/21 documented as of this encounter
--- OUTSIDE RECORDS SUMMARY | 2025-03-02 18:33 | XMS_ITS | Clinical Summary ---
Author Organization Address [address] [place] [id number] Care Team Providers Care Investigation Division Lieutenant Name Role Phone Unavailable Primary Care Provider Unavailabl e Social History Tobacco Use Types Packs/Day Years Used Date Smoking Tobacco: Never Assessed Comments Unknown Sex and Gender Information Value Date Recorded Sex Assigned at Not on file Legal Sex Female 2:02 PM STEWARD RACETRACK Gender Identity Not on file Sexual Orientation Not on file Plan of Treatment Health Maintenance Due Date Last Done Comments Hepatitis C Virus (HCV) Screening 1987 TdaP Immunization 1987 Hepatitis B Immunization (3 of 3 - 3-dose series) 10/02/1997 08/07/1997, 03/23/1997 Pap Smear 2008 Cervical Cancer Screening (CCS) 2017 HPV/Cotest 2017 Influenza Immunization (#1) 2024 SARS-COV-2 Immunization ( season) 2024 Respiratory Syncytial Virus (RSV) Immunization (Adult) (1 - 1-dose 75+ series) 2062 DTaP/Tdap/Td Immunization Discontinued 2001, 08/23/1992, 06/05/1990, Additional history exists Human Papillomavirus (HPV) Immunization Completed 05/19/2008, 01/29/2008, 04/24/2007 Meningococcal Immunization (ACWY) Aged Out No longer eligible based on patient's age to complete this topic Pneumococcal Immunization Combined Aged Out No longer eligible based on patient's age to complete this topic Rotavirus Immunization Aged Out No lo nger eligible based on patient's age to complete this topic
--- OUTSIDE RECORDS SUMMARY | 2025-03-02 18:33 | XMS_ITS | Clinical Summary ---
Author Organization [facility] Address [address] [place] [address] Care Team Providers Care Nutrition Specialist Name Role Phone Unavailable Primary Care Provider Unavailabl e Source Comments [facility],non-owned Affiliates and Associated Physician Practices is amultiple site organization consisting of ambulatory clinics and hospital sitesin [place], [place], [place] and [place]. This disclosure is being madepursuant to the Care Everywhere program and may not contain all information available regarding this patient. Last updated 17.[facility] Allergies Active Allergy Reactions Criticality Noted Date Comments Penicillins Other 11/24/2022 Reaction as a child Medications * Be aware that medications may not be up to date on this document. Alwaysverify current medications with the patient. Vit-Fe Fumarate-FA ( VITAMIN) 28-0.8 MG tablet Take 1 Tab by mouth once daily Active albuterol HFA (PROVENTIL;VENT MINA;PROAIR) 108 (90 BASE) MCG/ACT inhaler Inhale 2 Puffs by mouth every 6 hours as needed Active budesonide-form oterol (SYMBICORT) 160-4.5 MCG/ACT inhaler Inhale 2 Puffs by mouth 2 times daily Active Doxylamine-Pyri doxine (DICLEGIS) 10-10 MG Take 1 Tab by mouth at bedtime 30 Tab 1 6 Active meclizine (ANTIVERT) 25 MG tablet Take 1 Tab by mouth 3 times daily as needed for Dizziness 20 Tab 0 6 Active amLODIPine (Norvasc) 10 MG tablet Take 1 (one) tablet by mouth once daily 3 Active cetirizine (ZyrTEC) 10 MG tablet Take 1 (one) tablet by mouth once daily 3 Active EluRyng 0.12-0.015 MG/24HR vaginal ring INSERT 1 RING VAGINALLY X3 WEEKS THEN REMOVE FOR 1 WEEK 3 Active fluticasone propionate (Flonase) 50 MCG/ACT nasal spray INSTILL 1 SPRAY INTO THE NOSTRILS ONCE DAILY 3 Active omeprazole (PriLOSEC) 20 MG capsule 3 Active meloxicam (Mobic) 15 MG tabletIndicatio ns: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 TAKE 1 TABLET BY MOUTH EVERY DAY 30 tablet 2 3 Active Active Problems No known active problems Social History Tobacco Use Types Packs/Day Years Used Date Smoking Tobacco: Never Smokeless Tobacco: Never Tobacco Cessation:Counseling Given: Not Answered Alcohol Use Standard Drinks/Week Comments No 0 (1 standard drink = 0.6 oz pur e alcohol) Comments Unknown Sex and Gender Information Value Date Recorded Sex Assigned at Not on file Legal Sex Female 3:03 AM SAMPLER TESTER Gender Identity Not on file Sexual Orientation Not on file Last Filed Vital Signs Vital Sign Reading Time Taken Comments Blood Pressure 132/78 03/28/2015 6:04 AM SAMPLER TESTER Pulse 80 03/28/2015 6:04 AM SAMPLER TESTER Temperature 36.7 C (98.1 F) 03/28/2015 3:04 AM SAMPLER TESTER Respiratory Rate 18 03/28/2015 6:04 AM SAMPLER TESTER Oxygen Saturation 100% 03/28/2015 6:04 AM SAMPLER TESTER Inhaled Oxygen Concentration - - Weight 88.6 kg (195 lb 6.4 oz) 11/24/2022 11:42 AM CDT Height 160 cm (5' 3) 11/24/2022 11:42 AM CDT Body Mass Index 34.61 11/24/2022 11:42 AM CDT Plan of Treatment Health Maintenance Due Date Last Done Comments HIV SCREENING 2002 HEPATITIS C SCREENING 04/04/2005 DTAP/TDAP/TD VACCINES (1 - Tdap) 2006 HEPATITIS B VACCINE (1 of 3 - 19+ 3-dose series) 2006 PAP SMEAR 2008 HPV VACCINE (1 - 3-dose SCDM series) 2014 DEPRESSION SCREENING 03/12/2024 COVID-19 VACCINE (1 - 2024-2 6 season) 2024 INFLUENZA VACCINE (#1) 2024 ZOSTER VACCINE (1 of 2) 2037 HIB VACCINE Aged Out No longer eligi ble based on patient's age to complete this topic MENINGOCOCCAL (Group B) VACC INE SHARED DECISION-MAKING Aged Out No longer eligibl e based on patient's age to complete this topic MENINGOCOCCAL GROUPS A/C/Y/W VACCINE Aged Out No longer eligible b ased on patient's age to complete this topic PNEUMOCOCCAL VACCINE Aged Out No long er eligible based on patient's age to complete this topic Insurance [employer]
--- OUTSIDE RECORDS SUMMARY | 2025-03-02 18:33 | XMS_ITS | Encounter Summary ---
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 us Historical Provider Final Res ult documented in this encounter Visit Diagnoses Not on filedocumented in this encounter Care Teams Cancer Program Director Relationship Specialty Start Date End Date No, Physician PCP - General 02/24/21 documented as of this encounter
--- OUTSIDE RECORDS SUMMARY | 2025-03-02 18:33 | XMS_ITS | Data Portability ---
Author Organization [facility] [place] Address [address] [place] [address] Assessment Encounter Date Assessment Date Assessment LastModified by Organization Details LastModified Time 02/16/2025 02/16/2025 Annual gynecological exam performed. Patient will come back in a year unless there are new symptoms. [email or web address] Not available 02/16/2025 15:25:43 Plan of Treatment Reminders Order Date Submit Date Provider Last Modified By Organization Details Last Modified Time Details Appointments MED CHECK 2025 10:00A YOSELIN Hargrove Not available Not available Not available Lab hbcab (hepatiti s B core Ab) igm, serum 2024 025 [facility] (Lab), [address], [place], [address], 02/17/2025 19:24:35 HBsAg (hepatiti s B surface Ag), serum 2024 025 [facility] (Lab), [address] [place], [address], 02/17/2025 19:24:34 hepatitis C virus Ab, serum 2024 025 [facility] (Lab), [address], [place], [address], 02/17/2025 19:24:34 HIV 1+2 AB + HIV 1 p24 Ag, qualitati ve immunoass ay, serum 2024 025 [facility] (Lab), [address], [place], [address], 02/17/2025 19:24:33 RPR (rapid plasma reagin), serum 2024 025 [facility] (Lab), [address], [place], [address], 02/17/2025 19:24:34 Referral None recorded. Procedures None recorded. Surgeries None recorded. Imaging None recorded. Medication Orders Slynd 4 mg (28) tablet 2024 025 [id number], [address], [place], [place], [id number], 02/16/2025 16:09:03 Patient TargetsNo targets recorded. Patient [...] nce of HIV infec tion. Not Available [facility] (Lab) [address], [place], [address], 02/17/2025 19:24:33 02/17/2002/16/2025 HEPAT ITIS B SURFA CE ANTIG EN hepatitis B surface antigen Non-re active non-re active The test metho d is elect dane milum inesc ence immun oassa y perfo rmed on the Dane Shannan e801. Value s obtai brett with diffe rent assay metho ds by other labor atori es canno t be used inter levy eably . Not Available [facility] (Lab) [address], [place], [address], 02/17/2025 19:24:34 02/17/20 25 02/16/2025 HEPAT ITIS [...] used inter levy eably . Not Available [facility] (Lab) [address], [place], [address], 02/17/2025 19:24:34 02/17/20 25 02/16/2025 RPR SCREE N, REFLE X TITER /CONF IRMAT ION RPR qualitative Nonrea ctive nonrea ctive Not Available [facility] (Lab) [address], [place], [address], 02/17/2025 19:24:34 02/17/20 25 02/16/2025 HEPAT ITIS B CORE, IGM hepatitis B core IgM antibody Non-re active non-re active Antib odies to Hepat itis B Core IgM not detec pratima. Does not exclu de the possi bilit y of expos ure to or infec tion with HBV. Corre late with other Hepat itis B serol ogies . Not Available [facility] (Lab) [address], [place], [address], 02/17/2025 19:24:35 02/17/20 25 02/16/2025 IMAGE GUIDE D PAP AND HPV REGAR DLESS image guided Pap, HPV regardless of Pap result SEE RESULT S BELOW CASE REPOR T: Cytol ogy Gynec ologi gunjan Repor t Case: [id number] Autho viral g Provi darell: Corinne Duran, LANE Colle [...] epith elial Sherie mcbride or Tish martell ([facility]) . Shift in bailey sugge stive of bacte rial vagin osis. 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 CLINI [facility] INFOR MATIO N: Menst [...] as clini praveen monae nted. Not Available [facility] (Lab) [address], [place], [address], 02/20/2025 00:13:38 Result Notes None recorded. Procedures Surgical History Date Name Laterality Status Provider Name and Address Organization Details Recorded Time 6 section completed [facility] 02/16/2025 15:46:52 Imaging Results None recorded. Procedure Notes None recorded. Medical Equipment None Reported. Allergies Allergen ID Allergen Name Allergen Category Reaction Reaction Severity Criticality Documentation Date Start Date Code Code System Note Provider Name and Address Organization Details Recorded Time 61785 penicilli n V Not available Not available Not available Not available 02/16/20252018 7984 RxNorm unrec ogniz ed react ion (text : Unkno wn, code: 64217 5006) (from [facility] sour e) Not Available [facility] - External Data Service - prod 5 03:04:59 40278 penicilli n G Not available Not available Not available Not available 02/16/20252018 7980 RxNorm unrec ogniz ed react ion (text : Unkno wn, code: 33940 5006) [facility] Not Available [facility] - External Data Service - prod 5 03:04:59 27381 Product containin g penicilli n (product) medicatio n Not available Not available Not available 02/16/2025 14617 8001 SNOMED Not Available [facility] - External Data Service - prod 03:05:23 [...] Updated DateTime 02/16/2025 160.02 cm 37.7 kg/m2 94079.17 g 145/83 mm[Hg] Raquel De La Fuente [facility] 02/16/2025 15:36:08 Social History Question Answer Notes LastModified by Organizat ion Details LastModified Time Tobacco Smoking Status Never Smoker Raquel De La Fuente [facility], [facility] 02/16/2025 15:46:10 Do You Have An Advance Directive? No [email or web address] Information n ot available 02/16/2025 Are You Blind Or Do You Have Difficulty Seeing? No [email or web address] Information n ot available 02/16/2025 What Is Your Level Of Caffeine Consumption? None [email or web address] Information not available 02/16/2025 How Much Tobacco Do You Chew? None [email or web address] Information not available 02/16/2025 In The 14 Days Before Symptom Onset, Have You Had Close Contact With A Laboratory-confirm ed COVID-19 While That Case Was Ill? No [email or web address] Information n ot available 02/16/2025 In The 14 Days Before Symptom Onset, Have You Had Close Contact With A Person Who Is Under Investigation For COVID-19 While That Person Was Ill? No [email or web address] Information not available 02/16/2025 Have You Been To An Area Known To Be High Risk For COVID-19? No [email or web address] Information not available 02/16/2025 Are You Deaf Or Do You Have Serious Difficulty Hearing? No [email or web address] Information not available 02/16/2025 What Type Of Diet Are You Following? REGULAR [email or web address] Information n ot available 02/16/2025 Which Illicit Or Recreational Drugs Have You Used? Marijuana [email or web address] Information not available 02/16/2025 What Is The Highest Grade Or Level Of School You Have Completed Or The Highest Degree You Have Received? [id number] [email or web address] Information not available 02/16/2025 Are There Any Guns Present In Your Home? No [email or web address] Information not available 02/16/2025 Do You Use Protection During Sex? No [email or web address] Information not available 02/16/2025 Do You Use Your Seat Belt Or Car Seat Routinely? Yes [email or web address] Information not available 02/16/2025 Do You Have Smoke And Carbon Monoxide Detectors In Your Home? Yes [email or web address] Information not available 02/16/2025 How Much Tobacco Do You Smoke? No Information not available 02/16/2025 Do You Use Sunscreen Routinely? No [email or web address] Information not available 02/16/2025 Have You Used IV Drugs? No [email or web address] Information not available 02/16/2025 Sex: Unknown Functional Status Question Answer Note LastModified by Organizat ion Details LastModified Time Do you use any illicit or recreational drugs? Yes [email or web address] Information not available 02/16/2025 What is your level of alcohol consumption? Occasional [email or web address] Information not available 02/16/2025 Are you able to walk independently without assistance or assistive devices? 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 Occasional Information not available 02/16/2025 Mental Status Question Answer Note LastModified by Organization D etails LastModified Time Do you feel stressed (tense, restless, nervous, or anxious, or unable to sleep at night)? [id number] Information not available 02/16/2025 Family History Relationship Description Onset Age of this Age Resolved Age Notes LastModified by Organization Details LastModified Time Unspecified Relation Family history unknown Not available 2024 15:36:25 Medical History Condition Response Asthma Y Hypertension Y Gynecological History Statement/Question Response Abnormal Pap [...] ICD10 Code Diagnosis IMO Codes Diagnosis Note [id number] YOSELIN Pittman [place] [address] [address] 02/16/2025 15:16:15 02/17/2025 09:52:12 Gynecologic examination 21080175 Z01.080 [id number] WWEPap - done todaySTI screen - ordered [...] advised. Questions answered. Contracept ion care management [id number] Z30.9 [id number] Discussed with patient risks, benefits, and alternativ [...] in 3-4 months Venereal d isease screening 652742436 Z11.3 68710 Sexually t ransmitted infectious disease 5811863 A64 Health Concerns Section Related Observation LastModified by Organization Detai ls LastModified Time None Recorded Concern Status LastModified by Organization Details LastModified Time None Recorded Advance Directives Directive N: Payers Insurance Date Sequence Insurance Name Policy Number Policy Seth Covered Member ID Seth Member ID Guarantor Name 02/15/2025 1 [facility] (MEDICAID REPLACEMENT - HMO) Yelena Serrano [id number] Yelena Serrano Notes Date Note Type Note [...] on amlodipine (managed by PCP). YOSELIN Pittman [address], [place], [address], [facility] 02/17/2025 08:54:14 OBGyn Episode Ob Episode Information Episode Created Date Number of Fetuses Patient Bloodtype Patient rh Status Prepregnancy Weight lbs Domestic Partner Domestic Partner Phone Father Name Powersaw Supervisor Status 02/17/20 25 1 CLOSED Fetus Data First Name Last Name Admitted to NICU Weight (g) Sex Living Outcome Pediatric Complications Fetus ID Race Codes Race Delivery Type F Full Term [id number] Primary Henrique Calculation Initial Henrique Date Initial Exam Date Initial Exam Provider Initial Ultrasound Date Last Menstrual Period Date Ultra Sound Weeks Gestation 0 Eighteen To Twenty Week Henrique Update Ultra Sound Date Fundal Height At Umbil Quickening Date Ultra Sound Latest Weeks Gestation Final Henrique Confirmed By Final Henrique Confirmed Date Final Henrique Date Ultra Sound Latest Days Gestation 0 0 Menstrual History Last Menstrual Date Menses Monthly On Bcp Conception Prior Menses Frequency Hcg Plus Date Menarche Onset Age Delivery Information Delivery Date Delivery Type Labor Anesthesia Weeks Gestation Incision Type Labor Labor Length Hrs Delivered By Post Complications Tubal Sterilization Discharge Date Comments 6 Discharge Information Feeding Method Contraceptive Method Maternal HG B and HCT Levels Ob Episode Information Episode Created Date Number of Fetuses Patient Bloodtype Patient rh Status Prepregnancy Weight lbs Domestic Partner Domestic Partner Phone Father Name Powersaw Supervisor Status 02/17/20 25 1 CLOSED Fetus Data First Name Last Name Admitted to NICU Weight (g) Sex Living Outcome Pediatric Complications Fetus ID Race Codes Race Delivery Type , Spontane ous [id number] Henrique Calculation Initial Henrique Date Initial Exam Date Initial Exam Provider Initial Ultrasound Date Last Menstrual Period Date Ultra Sound Weeks Gestation 0 Eighteen To Twenty Week Henrique Update Ultra Sound Date Fundal Height At Umbil Quickening Date Ultra Sound Latest Weeks Gestation Final Henrique Confirmed By Final Henrique Confirmed Date Final Henrique Date Ultra Sound Latest Days Gestation 0 0 Menstrual History Last Menstrual Date Menses Monthly On Bcp Conception Prior Menses Frequency Hcg Plus Date Menarche Onset Age Delivery Information Delivery Date Delivery Type Labor Anesthesia Weeks Gestation Incision Type Labor Labor Length Hrs Delivered By Post Complications Tubal Sterilization Discharge Date Comments 6 Discharge Information Feeding Method Contraceptive Method Maternal HG B and HCT Levels
--- OUTSIDE RECORDS SUMMARY | 2025-03-02 18:34 | XMS_ITS | Clinical Summary ---
Author Organization [facility] Address [address] [place] [address] Care Team Providers Care Hearing Aid Repair Technician Name Role Phone None, Provider MD Primary Care Provider Unavaila ble Allergies Active Allergy Reactions Criticality Noted Date Comments Penicillin V Unknown 05/24/2018 Penicillin G Unknown 11/12/2018 Medications NUVARING 0.12-0.015 MG/24HR RING 9 Active acetaminophen 325 MG tablet Take 650 mg by mouth every 6 (six) hours as needed. FOR PAIN 1 Active clindamycin 300 MG capsule TAKE 1 CAPSULE BY MOUTH EVERY 8 HOURS UNTIL ALL TAKEN 1 Active SYMBICORT 80-4.5 MCG/ACT inhaler Inhale 2 puffs into the lungs 2 (two) times daily. 5 Active cetirizine (ZYRTEC) 10 MG tablet Take 1 tablet (10 mg total) by mouth daily. 5 Active NATURAL VITAMIN D-3 125 MCG (5000 UT) Tab Take 1 tablet (125 mcg total) by mouth daily. 5 Active Albuterol-Budeson john (AIRSUPRA) 90-80 MCG/ACT AerosolIndication s:Moderate persistent reactive airway disease without complication (HHS/HCC) Inhale 2 puffs into the lungs every 4 (four) hours as needed. 32.1 g 2 5 Active omeprazole (PRILOSEC) 40 MG capsuleIndication s:Gastroesophagea l reflux disease, unspecified whether esophagitis present TAKE 1 CAPSULE (40 MG TOTAL) BY MOUTH DAILY. 90 capsule 1 5 Active Active Problems Problem Noted Date Diagnosed Date Chronic right shoulder pain 05/24/2018 Cervical high risk human pap illomavirus (HPV) DNA test positive 08/23/2017 Encounter for surveillance of nuvaring 8 Asthma Resolved Problems Problem Noted Date Diagnosed Date Resolved Date Encounter for preventive health examination 05/24/2018 11/21/2019 Encounters Date Type Department Care Team Description 01/19/2025 9:00 AM [facility]ER - 01/19/2025 11:59 PM [facility] C[facility]ER Hospital Encounter [facility] [place] [address] Ric Prieto MD Discharge Disposition: Home or Self Care (Routine Discharge) 01/19/2025 Scan HEALTH INFO SRVCS Scanned, [facility] PFT (SCAN) 01/19/2025 Travel 12/18/2024 8:20 AM CDT Office Visit [facility]ty Care - [facility] [address] [place] [address] Ric Prieto MD New Patient 12/18/2024 Telephone [facility] - [address] [address] Ric Prieto MD Blood Pressure 12/18/2024 Travel from Last 3 Months Immunizations Immunization Administration Dates Next Due Dtp 08/23/1992,06/05/1990,12/28/1989 ,11/29/1988 HPV2 (Cervarix) 05/19/2008,01/29/2008,04/24/2007 Hepatitis B 08/07/1997,03/23/1997 MMR 11/29/1988 Opv 06/05/1990,12/28/1989,11/29/1988 Td 08/06/2001 Family History Medical History Relation Comments COPD Mother Relation Status Comments Mother Social History Tobacco Use Types Packs/Day Years Used Date Smoking Tobacco: Never Smokeless Tobacco: Never Tobacco Cessation:Counseling Given: Yes Alcohol Use Standard Drinks/Week Comments Yes 0 (1 standard drink = 0.6 oz pur e alcohol) PHQ-2 Answer Date Recorded Patient Health Questionnaire-2 Score 0 12/18/2024 Comments Unknown Sex and Gender Information Value Date Recorded Sex Assigned at Female 12/18/2024 8:25 AM CDT Legal Sex Female 9:59 PM CDT Gender Identity Not on file Sexual Orientation Not on file Last Filed Vital Signs Vital Sign Reading Time Taken Comments Blood Pressure 161/101 12/18/2024 8:56 AM CDT Pulse 85 12/18/2024 8:32 AM CDT Temperature 37.2 C (99 F) 12/26/2018 4:34 PM CDT Respiratory Rate 16 12/18/2024 8:32 AM CDT Oxygen Saturation 98% 12/18/2024 8:32 AM CDT ra Inhaled Oxygen Concentration - - Weight 95.3 kg (210 lb) 12/18/2024 8:32 AM CDT Height 157.5 cm (5' 2) 12/18/2024 8:32 AM CDT Body Mass Index 38.41 12/18/2024 8:32 AM CDT Plan of Treatment Upcoming Encounters Date Type Department Care Team (Late st Contact Info) Description 04/15/2025 11:00 AM [facility] CODER Office Visit [facility] Multispecialty Care - [address], [address] [place] [address] Ric Prieto MD [address] [place] [address] [place] [address] Health Maintenance Due Date Last Done Comments Cervical Cancer Screening Pap Smear (Age 30 to 64) Every 3 Years 1987 Hepatitis B Vaccines (3 of 3 - 3-dose series) 10/02/1997 08/07/1997, 03/23/1997 DTaP, Tdap and Td Vaccines (2 - Tdap) 08/07/2001 08/06/2001, 08/23/1992, 06/05/1990, Additional history exists Hepatitis C 2005 Pneumococcal Vaccine: Pediatrics (0 to 5 Years) and At-Risk Patients (6 to 49 Years) (1 of 2 - PCV) 2006 Annual Physical 05/25/2019 05/24/2018 Cervical Cancer Screening Pap with HPV Testing (Age 30 to 64) Every 5 Years 11/13/2023 Cervical Cancer Screening with HPV 11/13/2023 COVID-19 Vaccine ( season) 2024 Influenza Adult (#1) 2024 HPV Vaccines Completed 05/19/2008, 01/10, 04/24/2007 PHQ-2 (Physician [place]) Completed 12/18/2024 Hepatitis A Vaccines Aged Out No long er eligible based on patient's age to complete this topic Meningococcal B Vaccine Aged Out No l onger eligible based on patient's age to complete this topic Meningococcal Vaccine Aged Out No christi bobbi eligible based on patient's age to complete this topic RSV Immunizations Under 20 Months Aged Out No longer eligible based on patient's age to complete this topic Procedures Procedure Name Priority Date/Time Associated Diagnosis Comments PULMONARY FUNCTION TEST Routine 01/19/2025 9:00 AM [facility] C[facility]ER Moderate persistent reactive airway disease without complication (HHS/HCC) PFT GENERIC (SCAN ORDER) 01/19/2025 from Last 3 Months Results * Complete PFT (pre/post Tucker, Lung Vol, Diff Capacity) (58850, 41281, 34112, 50885) (01/19/2025 9:00 AM [facility] CODER) Narrative [facility] - 01/19/2025 9:00 AM [facility] CODER Ric Prieto MD 01/28/2025 2:04 PM [facility] PULMONARY FUNCTION TEST REPORT Yelena Serrano INTERPRETATION Please see scanned PFT report for raw values, flow-volume loop, and therapist's comments. Spirometry: Prebronchodilator FVC 3.20 L, 104% predicted. FEV1 1.55 L, 61% predicted. FEV1/FVC 48%. Postbronchodilator FVC 3.41 L, not 11% predicted. FEV1 2.05 L, 80% predicted. FEV1/FVC 60%. Positive bronchodilator response. Lung volumes: TLC 4.72 L, 94% predicted. RV 122% predicted. Diffusing capacity: Unadjusted DLCO 100% predicted. IMPRESSION: 1. Mild obstructive ventilatory limitation by Gold criteria. 2. Positive bronchodilator response 3. Total lung capacity within normal limits. 4. Mild air trapping. 5. Unadjusted DLCO within normal limits. RIC PRIETO MD Ric Prieot MD PFT ORDERABLES Final Resul t [facility] [address] [place] [address], * PFT GENERIC (SCAN ORDER) (01/19/2025) 01/19/2025 us [facility] Scanned SCANNING Final Resu lt from Last 3 Months Insurance [place] Care Teams Hearing Aid Repair Technician Relationship Specialty Start Date End Date None, Provider, PCP - General UNKNOWN PHYSICIAN SPECIALTY 01/19/25
[2025-03-02 18:40] VITALS: BP 151/89; PULSE 96; RESP 18; TEMP 36.8; O2SAT 100
--- NOTE | 2025-03-02 19:11 | ED.FEMALEGU ---
HPI - Female Genitourinary General Chief complaint: Urogenital-Female Stated complaint: STD Source: patient Mode of arrival: ambulatory Limitations: no limitations History of Present Illness HPI Narrative: this is a 39-year-old female patient who presents emergency department with concerns after having intercourse with her partner and having some burning. Patient states that she was recently in her OBGYN had her annual checkup, she always has STI testing which was negative. She states all was well. She had intercourse with her partner, she states she is monogamous, she states during intercourse she had some burning and discomfort. She has had no further discomfort or burning since. No discharge, no abdominal pain or distress. She is concern for STIs and would like tested. She denies any other complaints or concerns otherwise. Onset (ago): day(s) (1) Severity: mild Female Urogenital Radiation: Non-Radiating Severity scale (1-10): 2 Quality of pain: burning Consistency: improved Vaginal discharge: none Vaginal bleeding: none Exacerbating factors: none Relieving factors: none Sexual activity: Yes Patient : No Related Data Home Medications ?Medication ?Instructions ?Recorded ?Confirmed ?Last Taken ?Type albuterol 90 mcg-budesonide 80 inh inhalation 03/02/25 Unknown History mcg/actuation HFA aerosol inhaler (Airsupra) amlodipine 10 mg tablet mg 03/02/25 Unknown History etonogestrel 0.12 mg-ethinyl vag ring vaginal 03/02/25 Unknown History estradiol 0.015 mg/24 hr vaginal ring (EluRyng) Allergies Allergy/AdvReac Type Severity Reaction Status Date / Time Penicillins Allergy Mild Hives Verified 03/02/25 19:05 Review of Systems Review of Systems: All systems reviewed & are unremarkable except as noted in HPI and below PMFSH Past Medical History Medical History History of gastroesophageal reflux (GERD) History of hypertension Social History Social History Substance use: current Substance use type: marijuana Exam Const: General: healthy appearing Nutritional Appearance: well nourished Orientation/consciousness: patient oriented x3 Limitations: no limitations HENMT: Head: normal to inspection Ears: external ears normal Face/Nose/Sinus: Normal external nose present Face and sinus: normal facial exam Mouth: Yes Normal oral and palatal mucosa present Teeth and gingiva: dentition normal Throat: posterior oropharynx normal Eyes: Conjunctivae: conjunctivae normal Pupils: Equal, round and reactive pupils present EOM: EOMs intact bilaterally Direct Ophthalmoscopy: no photophobia Neck: Neck: normal visual inspection Chest: Chest palpation & inspection: normal inspection of the chest Resp: Effort & Inspection: normal respiratory effort Auscultation: clear to auscultation bilaterally Cardio: Rate: regular rate Rhythm: regular rhythm GI: GI Palp: Yes Soft to palpation Auscultation: normal bowel sounds : General: Yes bladder normal to palpation Back/Spine/Pelvis: Back: no CVA tenderness Skin: General skin exam: normal color Rashes: no rashes Wounds: no wounds Neuro: General: patient oriented x3 Cranial nerves: Yes Nystagmus not present Speech: normal speech Gait exam (Neuro): Normal gait present Extrem: General: normal to inspection and no clubbing, cyanosis or edema Psych: Appearance: grossly normal Mental Status: mental status grossly normal Affect: normal affect Course Course Emergency Course: this is a 39-year-old female patient who presents emergency department with concerns after having intercourse with her partner and having some burning. Patient states that she was recently in her OBGYN had her annual checkup, she always has STI testing which was negative. She states all was well. She had intercourse with her partner, she states she is monogamous, she states during intercourse she had some burning and discomfort. She has had no further discomfort or burning since. No discharge, no abdominal pain or distress. She is concern for STIs and would like tested. She denies any other complaints or concerns otherwise. vital signs stable discussed causes of vaginal pain with intercourse. patient educated on testing for STI and time line for results. She verbalized understanding she is agreeable this plan. Urine STI testing was obtained. Educated patient to PELVIC REST, Avoid any sexual intercourse until results, results may take up to 48 hours please check your patient portal in the interim, follow-up with your OBGYN in the next 3-4 days for further evaluation exam, Return to the urgent care or emergency room for any further worrisome sign or symptom. intro questions to her satisfaction she is agreeable plan patient denies any further discussion concerns to be addressed prior to discharge Level of Care: Express Care Visit Vital Signs Vital signs: Vital Signs Temperature 98.2 F 03/02/25 18:40 Pulse Rate 96 03/02/25 18:40 Respiratory Rate 18 03/02/25 18:40 Blood Pressure 151/89 H 03/02/25 18:40 Pulse Oximetry 100 03/02/25 18:40 Oxygen Delivery Room Air 03/02/25 18:40 Temperature 98.2 F 03/02/25 18:40 Pulse Rate 96 03/02/25 18:40 Respiratory Rate 18 03/02/25 18:40 Blood Pressure 151/89 H 03/02/25 18:40 Pulse Oximetry 100 03/02/25 18:40 Oxygen Delivery Room Air 03/02/25 18:40 MDM MDM Narrative Medical decision making narrative: this is a 39-year-old female patient who presents emergency department with concerns after having intercourse with her partner and having some burning. Patient states that she was recently in her OBGYN had her annual checkup, she always has STI testing which was negative. She states all was well. She had intercourse with her partner, she states she is monogamous, she states during intercourse she had some burning and discomfort. She has had no further discomfort or burning since. No discharge, no abdominal pain or distress. She is concern for STIs and would like tested. She denies any other complaints or concerns otherwise. vital signs stable discussed causes of vaginal pain with intercourse. patient educated on testing for STI and time line for results. She verbalized understanding she is agreeable this plan. Urine STI testing was obtained. Educated patient to PELVIC REST, Avoid any sexual intercourse until results, results may take up to 48 hours please check your patient portal in the interim, follow-up with your OBGYN in the next 3-4 days for further evaluation exam, Return to the urgent care or emergency room for any further worrisome sign or symptom. intro questions to her satisfaction she is agreeable plan patient denies any further discussion concerns to be addressed prior to discharge Differential Diagnosis Differential Diagnosis: painful sexual intercourse, vaginal dryness, STI Discharge Plan Discharge Clinical Impression: Pain on intercourse Patient Disposition: Home Condition: Stable Instructions: Dyspareunia in Women (DC) Additional Instructions: PELVIC REST Avoid any sexual intercourse until results results may take up to 48 hours please check your patient portal in the interim follow-up with your OBGYN in the next 3-4 days for further evaluation exam Return to the urgent care or emergency room for any further worrisome sign or symptom Patient Language: Slovenian Prescriptions: No Action amlodipine 10 mg tablet etonogestrel-ethinyl estradiol [EluRyng] 0.12-0.015 mg/24 hr ring VAGINAL Airsupra 90-80 mcg/actuation HFA aerosol inhaler INHALATION Follow-up/Referrals: Mandeep,HEATHER Perera [Primary Care Provider, Family Practice] Time of Disposition: 19:12
[2025-03-03 21:13] LABS: Trichomonas Vag PCR NOT DETECTED (NOT DETECTE)
== END 2025-03-02 19:14 | disposition home or self-care (01) ==
PROVIDERS: Emergency Provider Nurse Practitioner Family; PCP Physician Assistant
DX: R10.20 Pelvic and perineal pain unspecified side (principal); Z11.3 Encounter for screening for infections with a predominantly sexual mode of transmission; I10 Essential (primary) hypertension; K21.9 Gastro-esophageal reflux disease without esophagitis
CPT/HCPCS: 87491; 87591; 87661; 99213; G0463